=== PATIENT | female | born 1950 | race Caucasian/White ===

== ENCOUNTER 2016-10-12 08:35 | Day surgery (SDC) | payer MEDICARE, OTHER ==
[2016-10-12] MEDS ORDERED: Dilation Soln 1 EA EACH EYELF ONE (09:00)
[2016-10-12] MEDS ORDERED: Timolol Maleate 0.5% Ophth Soln 5 ML Bottle EYELF ONE (09:00)
[2016-10-12] MEDS ORDERED: Phenylephrine 10% Ophth Soln 5 ML Bot EYELF ONE (09:00)
[2016-10-12] MEDS ORDERED: Povidone-Iodine 5% Sterile Ophth Soln 30 ML Bottle EYELF ONE ×2 (09:00→10:16)
[2016-10-12] MEDS ORDERED: Sodium Chloride 0.9% 10 ML Syringe FLUSH PRN (09:00)
[2016-10-12] MEDS ORDERED: Proparacaine 0.5% Ophth Soln 15 ML Bottle EYELF ONE (09:00)
[2016-10-12] MEDS ORDERED: Moxifloxacin 0.5% Ophth Soln 3 ML Bottle EYELF ONE (09:00)
[2016-10-12] MEDS ORDERED: Midazolam 1 MG/ML 2 ML SDV ONE (09:42)
[2016-10-12] MEDS ORDERED: Dexamethasone 4 MG/ML SDV ONE (09:43)
[2016-10-12] MEDS ORDERED: Lidocaine 1% 30 ML SDV ONE (10:15)
[2016-10-12] MEDS ORDERED: Vancomycin 500 MG SDV EYELF ONE (10:15)
[2016-10-12] MEDS ORDERED: Chondroitin Sulfate/Hyaluronate Sodium Ophth Inj 0.75 ML Syringe EYELF ONE (10:16)
[2016-10-12] MEDS ORDERED: Balanced Salt Solution Ophth Irrig 500 ML Bottle IOCULAR ONE (10:16)
[2016-10-12] MEDS ORDERED: Apraclonidine 0.5% Ophth Soln 5 ML Bot EYELF ONE (10:16)
[2016-10-12] MEDS ORDERED: Diclofenac Sodium 0.1% Ophth Soln 5 ML Bottle EYELF ONE (10:16)
[2016-10-12] MEDS ORDERED: Dexamethasone/Neomycin/Polymyxin B Ophth Oint 3.5 GM Tube EYELF ONE (10:17)
[2016-10-12 11:15] VITALS: BP 134/85
[2016-10-12] MEDS ORDERED: Dexamethasone 4 MG/ML SDV IV ONE (14:07)
[2016-10-12] MEDS ORDERED: Midazolam 1 MG/ML 2 ML SDV IV ONE (14:07)
--- NOTE | 2016-10-12 14:29 | OR ---
DATE: 10/12/2016 PREOPERATIVE DIAGNOSIS: Cataract, left eye. POSTOPERATIVE DIAGNOSIS: Cataract, left eye. PROCEDURE: Extracapsular cataract extraction with intraocular lens implant, left eye. ANESTHESIA: Topical/local MAC. COMPLICATIONS: None. INDICATION: Ms. Jimenez was seen in the clinic. She has complained of a progressive change in vision. Clinical examination reveals visually significant cataract with best spectacle corrected vision with oncoming light at the level of 20/200. I explained options. I offered cataract surgery and I explained risks, including, but not limited to, infection, retinal detachment, loss of vision, need for additional surgery, and risks associated with anesthesia. We discussed implant options. She requested a monofocal implant. OPERATIVE DESCRIPTION: After informed consent was obtained and the risks, benefits, and alternatives were explained, the patient was brought to the operative suite and topical anesthesia was administered. The patient was then prepped and draped in the sterile fashion and attention was placed on the left eye. A sterile lid speculum was placed into the left eye to allow operative exposure. A full-thickness paracentesis was made in the temporal portion of the operative eye. Preservative-free lidocaine 0.1 mL was injected into the anterior chamber followed by viscoelastic. A full-thickness corneal incision was then made into the anterior chamber. A bent needle cystotome was used to create a small dave in the anterior capsule. The capsulorrhexis forceps was then used to create a 360-degree curvilinear capsulorrhexis. The nucleus was then removed using a phacoemulsification handpiece and the remaining cortical material was then removed with irrigation and aspiration handpiece. Following removal of the cortical material, the capsular bag was then inspected and noted to be free of any holes or tears. Viscoelastic was then injected into the capsular bag and the intraocular lens was inserted into the capsular bag. No complications occurred. The viscoelastic material was then removed from both the anterior and posterior chambers and from behind the IOL. The lens and capsular bag were then reinspected. The IOL was well centered and the capsular bag intact. The wound and paracentesis sites were inspected and hydrated with balanced saline solution. Both were found to be self-sealing. The intraocular pressure was assessed digitally and found to be within normal range. A good red reflex was noted at the completion of the procedure. No complications occurred during the operation. At the completion of the procedure, Maxitrol, Voltaren, and Iopidine drops were placed into the operative eye. A sterile eye shield was placed over the operative eye and the patient was transported to the postoperative recovery area having tolerated the procedure well. Postoperative instructions were given along with a postoperative appointment. The patient was advised to call with any questions or concerns. [facility] /[id number]
== END 2016-10-12 11:27 | disposition home or self-care (01) ==
LOC: DL.SDS 08:35
PROVIDERS: ATTEND Ophthalmology
DX: H26.9 Unspecified cataract (principal); I10 Essential (primary) hypertension; E78.5 Hyperlipidemia, unspecified; E03.9 Hypothyroidism, unspecified; Z98.890 Other specified postprocedural states; Z88.8 Allergy status to other drugs, medicaments and biological substances; Z90.49 Acquired absence of other specified parts of digestive tract; Z79.899 Other long term (current) drug therapy
CPT/HCPCS: 00142; 66984; A9270; C1780; J1100; J2250; J3370; J7050

== ENCOUNTER 2016-10-19 09:04 | Day surgery (SDC) | payer MEDICARE, OTHER ==
[2016-10-19] MEDS ORDERED: Moxifloxacin 0.5% Ophth Soln 3 ML Bottle EYERT ONE (09:15)
[2016-10-19] MEDS ORDERED: Phenylephrine 10% Ophth Soln 5 ML Bot EYERT ONE (09:15)
[2016-10-19] MEDS ORDERED: Timolol Maleate 0.5% Ophth Soln 5 ML Bottle EYERT ONE (09:15)
[2016-10-19] MEDS ORDERED: Proparacaine 0.5% Ophth Soln 15 ML Bottle EYERT ONE (09:15)
[2016-10-19] MEDS ORDERED: Sodium Chloride 0.9% 10 ML Syringe FLUSH PRN (09:15)
[2016-10-19] MEDS ORDERED: Povidone-Iodine 5% Sterile Ophth Soln 30 ML Bottle EYERT ONE ×2 (09:15→10:45)
[2016-10-19] MEDS ORDERED: Dilation Soln 1 EA EACH EYERT ONE (09:15)
[2016-10-19] MEDS ORDERED: Midazolam 1 MG/ML 2 ML SDV ONE (10:24)
[2016-10-19] MEDS ORDERED: Dexamethasone 4 MG/ML SDV ONE (10:24)
[2016-10-19] MEDS ORDERED: Dexamethasone/Neomycin/Polymyxin B Ophth Oint 3.5 GM Tube EYERT ONE (10:45)
[2016-10-19] MEDS ORDERED: Diclofenac Sodium 0.1% Ophth Soln 5 ML Bottle EYERT ONE (10:45)
[2016-10-19] MEDS ORDERED: Apraclonidine 0.5% Ophth Soln 5 ML Bot EYERT ONE (10:45)
[2016-10-19] MEDS ORDERED: Balanced Salt Solution Ophth Irrig 500 ML Bottle IOCULAR ONE (10:46)
[2016-10-19] MEDS ORDERED: Tetracaine HCl/PF 0.5% 4 ML Bottle EYERT ONE (10:46)
[2016-10-19] MEDS ORDERED: Chondroitin Sulfate/Hyaluronate Sodium Ophth Inj 0.75 ML Syringe EYERT ONE (10:46)
[2016-10-19] MEDS ORDERED: Vancomycin 500 MG SDV EYERT ONE (10:46)
[2016-10-19] MEDS ORDERED: Lidocaine 1% 30 ML SDV ONE (10:46)
--- NOTE | 2016-10-19 11:30 | OR ---
DATE: 10/19/2016 PREOPERATIVE DIAGNOSIS: Cataract, right eye. POSTOPERATIVE DIAGNOSIS: Cataract, right eye. PROCEDURE: Extracapsular cataract extraction with intraocular lens implant, right eye. ANESTHESIA: Topical/local MAC. COMPLICATIONS: None. INDICATION: Mrs. Jimenez was seen in the clinic. She has complained of a slow progressive decrease in vision. Clinical examination revealed visually significant cataract. I explained options, I offered cataract surgery, and I explained risks including but not limited to infection, retinal detachment, loss of vision, need for additional surgery, and risks associated with anesthesia. We discussed implant options. She requested a monofocal implant. She has preexisting corneal astigmatism and understands that her visual potential will be limited without glasses. OPERATIVE DESCRIPTION: After informed consent was obtained and the risks, benefits, and alternatives were explained, the patient was brought to the operative suite and topical anesthesia was administered. The patient was then prepped and draped in the sterile fashion and attention was placed on the right eye. A sterile lid speculum was placed into the right eye to allow operative exposure. A full-thickness paracentesis was made in the temporal portion of the operative eye. Preservative-free lidocaine 0.1 mL was injected into the anterior chamber followed by viscoelastic. A full-thickness corneal incision was then made into the anterior chamber. A bent needle cystotome was used to create a small dave in the anterior capsule. The capsulorrhexis forceps was then used to create a 360-degree curvilinear capsulorrhexis. The nucleus was then removed using a phacoemulsification handpiece and the remaining cortical material was then removed with irrigation and aspiration handpiece. Following removal of the cortical material, the capsular bag was then inspected and noted to be free of any holes or tears. Viscoelastic was then injected into the capsular bag and the intraocular lens was inserted into the capsular bag. The viscoelastic material was then removed from both the anterior and posterior chambers and from behind the IOL. The lens and capsular bag were then reinspected. The IOL was well centered and the capsular bag intact. The wound and paracentesis sites were inspected and hydrated with balanced saline solution. Both were found to be self-sealing. The intraocular pressure was assessed digitally and found to be within normal range. A good red reflex was noted at the completion of the procedure. No complications occurred during the operation. At the completion of the procedure, Maxitrol, Voltaren, and Iopidine drops were placed into the operative eye. A sterile eye shield was placed over the operative eye and the patient was transported to the postoperative recovery area having tolerated the procedure well. Postoperative instructions were given along with a postoperative appointment. The patient was advised to call with any questions or concerns. [facility] /[id number]
[2016-10-19 11:48] VITALS: BP 137/72
[2016-10-19] MEDS ORDERED: Midazolam 1 MG/ML 2 ML SDV IV ONE (15:59)
[2016-10-19] MEDS ORDERED: Dexamethasone 4 MG/ML SDV IV ONE (15:59)
== END 2016-10-19 11:45 | disposition home or self-care (01) ==
LOC: DL.SDS 09:04
PROVIDERS: ATTEND Ophthalmology
PROC: 08RJ3JZ Replacement of Right Lens with Synthetic Substitute, Percutaneous Approach (ICD-10-PCS; principal; 2016-10-19)
DX: H26.8 Other specified cataract (principal); I10 Essential (primary) hypertension; Z85.3 Personal history of malignant neoplasm of breast; E03.9 Hypothyroidism, unspecified; Z79.899 Other long term (current) drug therapy
CPT/HCPCS: 00142; 66984; A9270; J1100; J2250; J3370; J7050; V2632

== ENCOUNTER 2017-09-02 14:35 | Emergency (ER) | payer MEDICARE, OTHER ==
[2017-09-02] MEDS ORDERED: Sodium Chloride 0.9% 10 ML Syringe FLUSH PRN (14:39)
[2017-09-02] MEDS ORDERED: Nitroglycerin 0.4 MG Tab.SL SL PRN (14:40)
[2017-09-02] MEDS ORDERED: Aspirin 81 MG Tab.Chew PO ONE (14:40)
[2017-09-02 15:32] LABS: CHLORIDE,CL 101 mmol/L (101-111); SODIUM,NA 137 mmol/L (135-145)
[2017-09-02] MEDS ORDERED: Furosemide 40 MG Tab PO ONE (15:50)
[2017-09-02 16:38] VITALS: BP 122/70
--- NOTE | 2017-09-02 16:48 | EDM.PDOC ---
Scribed by Cielo Aldana 09/02/17 [id number] for Diony Nava MD ED HPI GENERAL MEDICAL PROBLEM - General Chief Complaint: Cardiovascular Problem Stated Complaint: hard time breathing Time Seen by Provider: 09/02/17 14:38 Source of Information: Reports: Patient, RN, RN Notes Reviewed History Limitations: Reports: No Limitations - History of Present Illness INITIAL COMMENTS - FREE TEXT/NARRATIVE: Patient presents to ER by private vehicle with complaint of shortness of breath and chest pressure. Patient is status post 3 vessel CABG in July 2017 at [facility] in [place]. Patient developed post surgical pleural effusion on the right and underwent thoracentesis on August 30 at [facility]. Over the past couple of days the patient has had progressive shortness of breath and orthopnea with intermittent chest pain/pressure. She states that she has been taking all of her medications as prescribed and has been taking her Lasix twice a day. She denies lower extremity edema, palpitations, fever, chills, cough or wheezing. Onset: Gradual Duration: Getting Worse Location: Reports: Chest Quality: Reports: Ache Severity: Moderate Improves with: Reports: None Worsens with: Reports: None Associated Symptoms: Reports: No Other Symptoms - Related Data Allergies Allergy/AdvReac Type Severity Reaction Status Date / Time codeine Allergy Itching Verified 10/19/16 09:50 Home Meds: Home Meds Acetaminophen 650 mg PO Q6HR PRN 12/10/13 [History] Calcium Carb & Citrate/Vit D3 [Calcium + Vitamin D3 Caplet] 1 tab PO DAILY 12/10 [History] Levothyroxine 125 mcg PO DAILY 12/10/13 [History] Metoprolol Succinate [Toprol XL 100mg] 50 mg PO DAILY 12/10/13 [History] Multivitamin [Multi Vitamin Daily] 1 tab PO DAILY 12/10/13 [History] Psyllium Husk [Metamucil] 1 cap PO DAILY 12/10/13 [History] amLODIPine [Norvasc] 5 mg PO BID 12/10/13 [History] Losartan/Hydrochlorothiazide [Hyzaar 100-12.5 Tablet] 1 tab PO DAILY 12/11/13 [ History] Aspirin [Ecotrin] 1 tab PO DAILY 10/11/16 [History] Propylene Glycol [Systane Balance] 1 drop EYEBOTH QID 07/18/17 [History] Past Medical History HEENT History: Reports: Cataract Cardiovascular History: Reports: High Cholesterol, Hypertension Respiratory History: Reports: None Gastrointestinal History: Reports: Diverticulosis Genitourinary History: Reports: None 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: Musculoskeletal History: Reports: Arthritis Neurological History: Reports: None Psychiatric History: Reports: None Endocrine/Metabolic History: Reports: Hypothyroidism Hematologic History: Reports: None Immunologic History: Reports: None Oncologic (Cancer) History: Reports: Breast Dermatologic History: Reports: None - Infectious Disease History Infectious Disease History: Reports: Chicken Pox, Measles, Mumps, Other (See Below) Other Infectious Disease History: streptococcal sepsis R) ankle - Past Surgical History Head Surgeries/Procedures: Reports: None HEENT Surgical History: Reports: Cataract Surgery, Eye Surgery Other HEENT Surgeries/Procedures: bilateral eye surg as an for crossed eyes. Cardiovascular Surgical History: Reports: None GI Surgical History: Reports: Appendectomy, Colonoscopy Female Surgical History: Reports: Hysterectomy, Mastectomy, Salpingo- Oophorectomy, Other (See Below) Other Female Surgeries/Procedures: bilateral mastectomy Social & Family History - Family History Cardiac: Reports: Angina, Heart Failure, Hypertension Musculoskeletal: Reports: Arthritis Endocrine/Metabolic: Reports: Diabetes, type II Oncologic: Reports: Breast, Lymphoma, Ovarian - Caffeine Use Caffeine Use: Reports: Coffee Other Caffeine Use: 2 cups of coffee daily ED ROS GENERAL - Review of Systems Review Of Systems: ROS reveals no pertinent complaints other than HPI. ED EXAM, GENERAL - Physical Exam Exam: See Below Exam Limited By: No Limitations General Appearance: Alert, WD/WN, No Apparent Distress, Obese Ears: Hearing Grossly Normal Nose: Normal Inspection, Normal Mucosa, No Blood Throat/Mouth: Normal Inspection, Normal Lips, Normal Teeth, Normal Gums, Normal Oropharynx, Normal Voice, No Airway Compromise Head: Atraumatic, Normocephalic Neck: Normal Inspection, Supple, Non-Tender, Full Range of Motion Respiratory/Chest: No Respiratory Distress, No Accessory Muscle Use, Decreased Breath Sounds (right greater than left), Rales (right greater than left), Other (midline sternal incision well healed without evidence of infection. ) Cardiovascular: Regular Rate, Rhythm, No Edema GI/Abdominal: Normal Bowel Sounds, Soft, Non-Tender, No Distention. No: Guarding, Rigid, Rebound (Female) Exam: Deferred Rectal (Female) Exam: Deferred Back Exam: Normal Inspection, Full Range of Motion, NT Extremities: Normal Inspection, Normal Range of Motion, Non-Tender, Normal Capillary Refill, No Pedal Edema Neurological: Alert, Oriented, CN II-XII Intact, Normal Cognition, No Motor/ Sensory Deficits Psychiatric: Normal Affect, Normal Mood Skin Exam: Warm, Dry, Intact, Normal Color, No Rash EKG INTERPRETATION EKG Date: 09/02/17 Time: 14:38 Rhythm: Other (sinus rhythm) Rate (Beats/Min): 69 [place]: Normal QRS: Other (incomplete. Probable left atrial abnormality. Borderline R wave progression, anterior leads.) ST-T: Other (nonspecific T abnormalities, lateral leads.) QT: Normal Course - Vital Signs Last Recorded V/S: Last Vital Signs Temp 36.7 C 09/02/17 14:55 Pulse 68 09/02/17 14:55 Resp 18 09/02/17 14:55 BP 122/70 09/02/17 14:55 Pulse Ox 95 09/02/17 14:55 - Orders/Labs/Meds Orders: Active Orders 24 hr Category Date Time Status EKG 12 Lead [EKG Documentation Completion] [RC] STAT Care 09/02/17 14:39 Active Peripheral IV Care [RC] . DIRECTED Care 09/02/17 14:39 Active Chest 1V Frontal [CR] Stat Exams 09/02/17 14:39 Taken Nitroglycerin [Nitrostat] Med 09/02/17 14:40 Active 0.4 mg SL Q5M PRN Sodium Chloride 0.9% [Saline Flush] Med 09/02/17 14:39 Active 10 ml FLUSH ASDIRECTED PRN Peripheral IV Insertion Adult [OM.PC] Stat Oth 09/02/17 14:39 Ordered Medication Orders Nitroglycerin (Nitrostat) 0.4 mg SL Q5M PRN PRN Reason: Chest Pain Sodium Chloride (Saline Flush) 10 ml FLUSH ASDIRECTED PRN PRN Reason: Keep Vein Open Last Admin: 09/02/17 16:33 Dose: 10 ml Labs: Laboratory Tests 09/02/17 09/02/17 09/02/17 Range/Units 14:55 14:55 14:55 WBC 9.2 (5.0-10.0) 10^3/uL RBC 3.46 L (4.2-5.4) 10^6/uL Hgb 11.0 L D (12.0-16.0) g/dL Hct 34.2 L (37.0-47.0) % MCV 98.8 (80-100) fL MCH 31.8 (27.0-34.0) pg MCHC 32.2 L (33.0-35.0) g/dL Plt Count 349 D (150-450) 10^3/uL Neut % (Auto) 56.2 (42.2-75.2) % Lymph % (Auto) 27.8 (20.5-50.1) % [place] % (Auto) 10.7 H (2-8) % Eos % (Auto) 5.0 H (1.0-3.0) % Baso % (Auto) 0.3 (0.0-1.0) % PT 10.0 (9.0-12.0) SEC INR 1.0 (0.9-1.2) APTT 25.4 (22.0-34.0) SEC Sodium 137 (135-145) mmol/L Potassium 4.4 (3.6-5.0) mmol/L Chloride 101 (101-111) mmol/L Carbon Dioxide 27.0 (21.0-31.0) mmol/L Anion Gap 13.4 BUN 12 (7-18) mg/dL Creatinine 1.0 (0.6-1.3) mg/dL Est Cr Clr Drug Dosing 47.78 mL/min Estimated GFR (MDRD) 55 BUN/Creatinine Ratio 12.00 Glucose 94 (74-105) mg/dL Calcium 9.2 (8.4-10.2) mg/dl Total Bilirubin 0.5 (0.2-1.0) mg/dL AST 16 (10-42) IU/L ALT 12 (10-60) IU/L Alkaline Phosphatase 69 (42-121) IU/L Creatine Kinase (26-174) IU/L Creatine Kinase Index (0-2.4) % CK-MB (CK-2) (0.4-4.7) ng/mL Troponin I < 0.02 (0.00-0.02) ng/ml B-Natriuretic Peptide 2890 H (0-100) pg/ml Total Protein 6.9 (6.7-8.2) g/dl Albumin 3.5 (3.2-5.5) g/dl Globulin 3.4 Albumin/Globulin Ratio 1.03 Amylase 48 (28-100) U/L Lipase 35 (22-51) U/L /12/12 Range/Units 14:55 WBC (5.0-10.0) 10^3/uL RBC (4.2-5.4) 10^6/uL Hgb (12.0-16.0) g/dL Hct (37.0-47.0) % MCV (80-100) fL MCH (27.0-34.0) pg MCHC (33.0-35.0) g/dL Plt Count (150-450) 10^3/uL Neut % (Auto) (42.2-75.2) % Lymph % (Auto) (20.5-50.1) % [place] % (Auto) (2-8) % Eos % (Auto) (1.0-3.0) % Baso % (Auto) (0.0-1.0) % PT (9.0-12.0) SEC INR (0.9-1.2) APTT (22.0-34.0) SEC Sodium (135-145) mmol/L Potassium (3.6-5.0) mmol/L Chloride (101-111) mmol/L Carbon Dioxide (21.0-31.0) mmol/L Anion Gap BUN (7-18) mg/dL Creatinine (0.6-1.3) mg/dL Est Cr Clr Drug Dosing mL/min Estimated GFR (MDRD) BUN/Creatinine Ratio Glucose (74-105) mg/dL Calcium (8.4-10.2) mg/dl Total Bilirubin (0.2-1.0) mg/dL AST (10-42) IU/L ALT (10-60) IU/L Alkaline Phosphatase (42-121) IU/L Creatine Kinase 31 (26-174) IU/L Creatine Kinase Index 2.6 H (0-2.4) % CK-MB (CK-2) 0.80 (0.4-4.7) ng/mL Troponin I (0.00-0.02) ng/ml B-Natriuretic Peptide (0-100) pg/ml Total Protein (6.7-8.2) g/dl Albumin (3.2-5.5) g/dl Globulin Albumin/Globulin Ratio Amylase (28-100) U/L Lipase (22-51) U/L Meds: Medications Generic Name Dose Route Start Last Admin Trade Name Molina PRN Reason Stop Dose Admin Nitroglycerin 0.4 mg 09/02/17 14:40 Nitrostat SL Q5M PRN Chest Pain Sodium Chloride 10 ml 09/02/17 14:39 09/02/17 16:33 Saline Flush FLUSH 10 ml ASDIRECTED PRN Administration Keep Vein Open Discontinued Medications Generic Name Dose Route Start Last Admin Trade Name Freq PRN Reason Stop Dose Admin Aspirin 324 mg 09/02/17 14:40 09/02/17 14:51 Aspirin PO 09/02/17 14:41 324 mg ONETIME ONE Administration Furosemide 40 mg 09/02/17 15:50 09/02/17 16:25 Lasix PO 09/02/17 15:51 40 mg ONETIME ONE Administration - Radiology Interpretation Free Text/Narrative:: Chest x-ray: Small left pleural effusion with likely associated basilar atelectasis. See rad report. Departure - Departure Time of Disposition: 16:20 Disposition: DC/Tfer to Acute Hospital 02 Reason for Transfer *Q: Primary PCI Indicated Condition: Serious Clinical Impression: Shortness of breath CHF (congestive heart failure) Qualifiers: Heart failure type: unspecified Heart failure chronicity: acute Qualified Code( s): I50.9 - Heart failure, unspecified Chest pain Qualifiers: Chest pain type: unspecified Qualified Code(s): R07.9 - Chest pain, unspecified Forms: ED Department Discharge, Interfacility Transfer EMTALA - My Orders Last 24 Hours: My Active Orders 09/02/17 14:39 EKG 12 Lead [EKG Documentation Completion] [RC] STAT Peripheral IV Care [RC] . DIRECTED Chest 1V Frontal [CR] Stat Sodium Chloride 0.9% [Saline Flush] 10 ml FLUSH ASDIRECTED PRN Peripheral IV Insertion Adult [OM.PC] Stat 09/02/17 14:40 Nitroglycerin [Nitrostat] 0.4 mg SL Q5M PRN - Assessment/Plan Last 24 Hours: My Active Orders 09/02/17 14:39 EKG 12 Lead [EKG Documentation Completion] [RC] STAT Peripheral IV Care [RC] . DIRECTED Chest 1V Frontal [CR] Stat Sodium Chloride 0.9% [Saline Flush] 10 ml FLUSH ASDIRECTED PRN Peripheral IV Insertion Adult [OM.PC] Stat 09/02/17 14:40 Nitroglycerin [Nitrostat] 0.4 mg SL Q5M PRN I have read and agree with the documentation that has been completed regarding this visit. By signing this record, I attest that the documentation was completed in my physical presence and is an accurate record of the encounter.
--- NOTE | 2017-09-06 13:04 | EKG ---
09/02/2017 - CLINTON CHANDLER E - TIME: 2:38 p.m. FINDINGS: Sinus rhythm at 69 and complete right bundle branch block. [facility] /[id number]
== END 2017-09-02 17:13 ==
LOC: DL.ED 14:35
DX: I11.0 Hypertensive heart disease with heart failure (principal); I50.9 Heart failure, unspecified; E78.00 Pure hypercholesterolemia, unspecified; E03.9 Hypothyroidism, unspecified; Z88.5 Allergy status to narcotic agent; Z79.899 Other long term (current) drug therapy; Z79.82 Long term (current) use of aspirin
CPT/HCPCS: 36415; 71045; 80053; 82150; 82550; 82553; 83690; 83880; 84484; 85025; 85610; 85730; 93005; 93010; 99285; A9270; J7050

== ENCOUNTER 2017-09-10 15:30 | Observation (INO) | payer MEDICARE, OTHER ==
[2017-09-10 16:42] LABS: CHLORIDE,CL 103 mmol/L (101-111); SODIUM,NA 139 mmol/L (135-145)
--- NOTE | 2017-09-10 17:08 | EDM.PDOC ---
ED HPI GENERAL MEDICAL PROBLEM - General Chief Complaint: Respiratory Problem Stated Complaint: [id number] CANT BREATHE WELL RECENT SURGERY Time Seen by Provider: 09/10/17 15:55 Source of Information: Reports: Patient History Limitations: Reports: No Limitations - History of Present Illness INITIAL COMMENTS - FREE TEXT/NARRATIVE: ED with c/o feeling shortof breath, no chest pain, weight gain increase 3# today since am weight. Recent CABG in July, Tx from ED here 08/31 with CHF. Patient states additional dose of Lasix today and still not voiding very well. Bilateral Chest Pain Score (Numeric/FACES): 5 - Related Data Allergies Allergy/AdvReac Type Severity Reaction Status Date / Time codeine Allergy Itching Verified 09/10/17 17:03 Home Meds: Home Meds Calcium Carb & Citrate/Vit D3 [Calcium + Vitamin D3 Caplet] 1 tab PO BID [History] Levothyroxine 125 mcg PO DAILY 12/10/13 [History] Multivitamin [Multi-Vitamin Daily] 1 tab PO DAILY 12/10/13 [History] Aspirin [Ecotrin] 1 tab PO DAILY 10/11/16 [History] Propylene Glycol [Systane Balance] 1 drop EYEBOTH QID PRN 10/11/16 [History] Acetaminophen [Tylenol Extra Strength] 1 tab PO Q4H PRN 09/02/17 [History] Amiodarone HCl [Pacerone] 1 tab PO DAILY 09/02/17 [History] Aspirin [Halfprin] 1 tab PO DAILY 09/02/17 [History] Docusate Sodium 2 cap PO BEDTIME 09/02/17 [History] Metoprolol Tartrate [Lopressor] 25 mg PO BID 09/02/17 [History] Nitroglycerin [Nitrostat] 1 tab SL ASDIRECTED PRN 09/02/17 [History] Potassium Chloride 1 tab PO BID 09/02/17 [History] Psyllium Husk 1 tsp PO DAILY 09/02/17 [History] atorvaSTATin [Lipitor] 40 mg PO BEDTIME 09/02/17 [History] Warfarin [Coumadin] 5 mg PO DAILY 09/10/17 [History] Furosemide [Lasix] 1 tab PO BID #60 tablet 09/11/17 [Rx] Warfarin [Coumadin] 5 mg PO DAILY@1400 tablet 09/11/17 [Rx] Zolpidem [Ambien] 5 mg PO BEDTIME PRN tablet 09/11/17 [Rx] Past Medical History HEENT History: Reports: Cataract Cardiovascular History: Reports: Afib, High Cholesterol, Hypertension Respiratory History: Reports: None Gastrointestinal History: Reports: Diverticulosis Genitourinary History: Reports: None 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: Musculoskeletal History: Reports: Arthritis Neurological History: Reports: None Psychiatric History: Reports: None Endocrine/Metabolic History: Reports: Hypothyroidism Hematologic History: Reports: None Immunologic History: Reports: None Oncologic (Cancer) History: Reports: Breast Dermatologic History: Reports: None - Infectious Disease History Infectious Disease History: Reports: Chicken Pox, Measles, Mumps, Other (See Below) Other Infectious Disease History: streptococcal sepsis R) ankle - Past Surgical History Head Surgeries/Procedures: Reports: None HEENT Surgical History: Reports: Cataract Surgery, Eye Surgery Other HEENT Surgeries/Procedures: 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 Cardiovascular Surgical History: Reports: None, Coronary Artery Bypass GI Surgical History: Reports: Appendectomy, Colonoscopy Female Surgical History: Reports: Hysterectomy, Mastectomy, Salpingo- Oophorectomy, Other (See Below) Other Female Surgeries/Procedures: bilateral mastectomy Social & Family History - Family History Cardiac: Reports: Angina, Heart Failure, Hypertension Musculoskeletal: Reports: Arthritis Endocrine/Metabolic: Reports: Diabetes, type II Oncologic: Reports: Breast, Lymphoma, Ovarian - Tobacco Use Smoking Status *Q: Never Smoker Second Hand Smoke Exposure: No - Caffeine Use Caffeine Use: Reports: Coffee Other Caffeine Use: 2 cups of coffee daily - Recreational Drug Use Recreational Drug Use: No ED ROS GENERAL - Review of Systems Review Of Systems: See Below Constitutional: Reports: Fatigue, Weight Gain HEENT: Reports: No Symptoms Respiratory: Reports: Shortness of Breath Cardiovascular: Reports: Dyspnea on Exertion, Edema. Denies: Chest Pain GI/Abdominal: Reports: No Symptoms Musculoskeletal: Reports: Leg Pain (bilateral lowe with swelling) Neurological: Reports: No Symptoms ED EXAM, GENERAL - Physical Exam Exam: See Below Exam Limited By: No Limitations General Appearance: Alert, Anxious Eye Exam: Bilateral Eye: EOMI Ears: Normal External Exam Ear Exam: Bilateral Ear: TM normal Nose: Normal Inspection Throat/Mouth: Normal Inspection Head: Atraumatic, Normocephalic Neck: Normal Inspection Respiratory/Chest: Decreased Breath Sounds (left base wheeze) Cardiovascular: Normal Peripheral Pulses, Regular Rate, Rhythm GI/Abdominal: Normal Bowel Sounds Back Exam: Normal Inspection, Full Range of Motion Extremities: Pedal Edema (trace) Neurological: Alert, Oriented, Normal Cognition Skin Exam: Wound/Incision (left medial calf, chest incision healining no redness) Course - Vital Signs Last Recorded V/S: Last Vital Signs Temp 97.8 F 09/11/17 08:00 Pulse 92 09/11/17 08:39 Resp 18 09/11/17 08:00 BP 117/86 09/11/17 08:39 Pulse Ox 94 L 09/11/17 08:00 - Orders/Labs/Meds Labs: Laboratory Tests 09/10/17 09/10/17 09/10/17 Range/Units 16:08 16:08 16:08 WBC 8.0 (5.0-10.0) 10^3/uL RBC 3.50 L (4.2-5.4) 10^6/uL Hgb 10.9 L (12.0-16.0) g/dL Hct 34.4 L (37.0-47.0) % MCV 98.3 (80-100) fL MCH 31.1 (27.0-34.0) pg MCHC 31.7 L (33.0-35.0) g/dL Plt Count 242 D (150-450) 10^3/uL Neut % (Auto) 50.2 (42.2-75.2) % Lymph % (Auto) 34.0 (20.5-50.1) % Towns % (Auto) 9.4 H (2-8) % Eos % (Auto) 6.0 H (1.0-3.0) % Baso % (Auto) 0.4 (0.0-1.0) % PT 20.7 H D (9.0-12.0) SEC INR 2.1 H (0.9-1.2) Sodium 139 (135-145) mmol/L Potassium 4.0 (3.6-5.0) mmol/L Chloride 103 (101-111) mmol/L Carbon Dioxide 28.0 (21.0-31.0) mmol/L Anion Gap 12.0 BUN 12 (7-18) mg/dL Creatinine 0.9 (0.6-1.3) mg/dL Est Cr Clr Drug Dosing 53.09 mL/min Estimated GFR (MDRD) > 60 BUN/Creatinine Ratio 13.33 Glucose 98 (74-105) mg/dL Calcium 9.1 (8.4-10.2) mg/dl Total Bilirubin 0.7 (0.2-1.0) mg/dL AST 22 (10-42) IU/L ALT 14 (10-60) IU/L Alkaline Phosphatase 77 (42-121) IU/L Creatine Kinase (26-174) IU/L Creatine Kinase Index (0-2.4) % CK-MB (CK-2) (0.4-4.7) ng/mL Troponin I < 0.02 (0.00-0.02) ng/ml B-Natriuretic Peptide 148 H (0-100) pg/ml Total Protein 6.7 (6.7-8.2) g/dl Albumin 3.5 (3.2-5.5) g/dl Globulin 3.2 Albumin/Globulin Ratio 1.09 Urine Color (YELLOW) Urine Appearance (CLEAR) Urine pH (5.0-9.0) Ur Specific [place] (1.005-1.030) Urine Protein (NEGATIVE) Urine Glucose (UA) (NEGATIVE) Urine Ketones (NEGATIVE) Urine Occult Blood (NEGATIVE) Urine Nitrite (NEGATIVE) Urine Bilirubin (NEGATIVE) Urine Urobilinogen (0.2-1.0) mg/dL Ur Leukocyte Esterase (NEGATIVE) Urine RBC /HPF Urine WBC (0-5/HPF) /HPF Ur Epithelial Cells /HPF Urine Bacteria (0-FEW/HPF) /HPF 09/10/17 09/10/17 Range/Units 16:08 16:57 WBC (5.0-10.0) 10^3/uL RBC (4.2-5.4) 10^6/uL Hgb (12.0-16.0) g/dL Hct (37.0-47.0) % MCV (80-100) fL MCH (27.0-34.0) pg MCHC (33.0-35.0) g/dL Plt Count (150-450) 10^3/uL Neut % (Auto) (42.2-75.2) % Lymph % (Auto) (20.5-50.1) % Towns % (Auto) (2-8) % Eos % (Auto) (1.0-3.0) % Baso % (Auto) (0.0-1.0) % PT (9.0-12.0) SEC INR (0.9-1.2) Sodium (135-145) mmol/L Potassium (3.6-5.0) mmol/L Chloride (101-111) mmol/L Carbon Dioxide (21.0-31.0) mmol/L Anion Gap BUN (7-18) mg/dL Creatinine (0.6-1.3) mg/dL Est Cr Clr Drug Dosing mL/min Estimated GFR (MDRD) BUN/Creatinine Ratio Glucose (74-105) mg/dL Calcium (8.4-10.2) mg/dl Total Bilirubin (0.2-1.0) mg/dL AST (10-42) IU/L ALT (10-60) IU/L Alkaline Phosphatase (42-121) IU/L Creatine Kinase 30 (26-174) IU/L Creatine Kinase Index 3.0 H (0-2.4) % CK-MB (CK-2) 0.90 (0.4-4.7) ng/mL Troponin I (0.00-0.02) ng/ml B-Natriuretic Peptide (0-100) pg/ml Total Protein (6.7-8.2) g/dl Albumin (3.2-5.5) g/dl Globulin Albumin/Globulin Ratio Urine Color Light yellow (YELLOW) Urine Appearance Clear (CLEAR) Urine pH 7.0 (5.0-9.0) Ur Specific [place] 1.010 (1.005-1.030) Urine Protein Negative (NEGATIVE) Urine Glucose (UA) Negative (NEGATIVE) Urine Ketones Negative (NEGATIVE) Urine Occult Blood Negative (NEGATIVE) Urine Nitrite Negative (NEGATIVE) Urine Bilirubin Negative (NEGATIVE) Urine Urobilinogen 0.2 (0.2-1.0) mg/dL Ur Leukocyte Esterase Negative (NEGATIVE) Urine RBC 0-5 /HPF Urine WBC 0-5 (0-5/HPF) /HPF Ur Epithelial Cells Rare /HPF Urine Bacteria Rare (0-FEW/HPF) /HPF Meds: Medications Discontinued Medications Generic Name Dose Route Start Last Admin Trade Name Freq PRN Reason Stop Dose Admin Acetaminophen 500 mg 09/10/17 18:26 09/11/17 01:25 Tylenol Extra Strength PO 500 mg Q4H PRN Administration Pain Amiodarone HCl 200 mg 09/11/17 09:00 09/11/17 08:39 Cordarone PO 200 mg DAILY JANESSA Administration Aspirin 81 mg 09/11/17 09:00 09/11/17 08:39 Halfprin PO 81 mg DAILY JANESSA Administration Atorvastatin Calcium 40 mg 09/10/17 21:00 09/10/17 21:02 Lipitor PO 40 mg BEDTIME JANESSA Administration Docusate Sodium 200 mg 09/10/17 21:00 09/10/17 21:02 Colace PO 200 mg BEDTIME JANESSA Administration Furosemide 20 mg 09/11/17 08:00 Lasix PO BIDDIURETIC JANESSA Furosemide 20 mg 09/10/17 21:00 09/11/17 08:39 Lasix PO 20 mg TID JANESSA Administration Heparin Sodium (Porcine) 5,000 units 09/10/17 22:00 Heparin Sodium SUBCUT Q8HR JANESSA Levothyroxine Sodium 125 mcg 09/11/17 06:00 09/11/17 05:57 Levothyroxine PO 125 mcg ACBRK JANESSA Administration Metoprolol Tartrate 25 mg 09/10/17 21:00 09/11/17 08:39 Lopressor PO 25 mg BID JANESSA Administration Multivitamins 1 each 09/11/17 09:00 09/11/17 08:39 Thera PO 1 each DAILY JANESSA Administration Potassium Chloride 10 meq 09/10/17 21:00 09/11/17 08:39 Klor-Con 10 PO 10 meq BID JANESSA Administration Sodium Chloride 10 ml 09/10/17 18:27 09/11/17 08:45 Saline Flush FLUSH 10 ml ASDIRECTED PRN Administration Keep Vein Open Warfarin Sodium 5 mg 09/10/17 19:00 09/10/17 19:09 Coumadin PO 5 mg DAILY@1400 JANESSA Administration Zolpidem Tartrate 5 mg 09/10/17 18:27 Ambien PO BEDTIME PRN Sleep Departure - Departure Time of Disposition: 18:00 Disposition: Admitted As Inpatient 64 Condition: Good Clinical Impression: CHF (congestive heart failure) Qualifiers: Heart failure type: diastolic Heart failure chronicity: acute Qualified Code(s) : I50.31 - Acute diastolic (congestive) heart failure - Discharge Information
[2017-09-10] MEDS ORDERED: Acetaminophen 500 MG Tab PO PRN (18:26)
[2017-09-10] MEDS ORDERED: Sodium Chloride 0.9% 10 ML Syringe FLUSH PRN (18:27)
[2017-09-10] MEDS ORDERED: Zolpidem 5 MG Tab PO PRN (18:27)
--- NOTE | 2017-09-10 18:46 | PCM.HP ---
H&P History of Present Illness - General Date of Service: 09/10/17 Admit Problem/Dx: Admission Diagnosis/Problem Admission Diagnosis/Problem Shortness of breath Source of Information: Patient - History of Present Illness Initial Comments - Free Text/Narative: The patient is a 67-year-old lady with a history of coronary artery disease, atrial fibrillation, diastolic congestive heart failure. The patient recently had bypass surgery, pacemaker placement. The patient has a known left sided pleural effusion. For this the patient underwent thoracentesis about 2 weeks ago. The patient presented with the shortness of breath, chest tightness. This started on the night of 09 September. No associated chest pain unless coughing. The cough has been present since the bypass surgery. There is no associated fever, no sputum. No significant leg swelling or change in swelling. She has been checking her weight once or twice a day. Today she noted that her weight in the afternoon was 3 pounds more than in the morning. Bilateral Chest Pain Score (Numeric/FACES): 5 - Related Data Allergies/Adverse Reactions: Allergies Allergy/AdvReac Type Severity Reaction Status Date / Time codeine Allergy Itching Verified 09/10/17 17:03 Home Medications: Home Meds Calcium Carb & Citrate/Vit D3 [Calcium + Vitamin D3 Caplet] 1 tab PO BID [History] Levothyroxine 125 mcg PO DAILY 12/10/13 [History] Multivitamin [Multi Vitamin Daily] 1 tab PO DAILY 12/10/13 [History] Aspirin [Ecotrin] 1 tab PO DAILY 10/11/16 [History] Propylene Glycol [Systane Balance] 1 drop EYEBOTH QID PRN 10/11/16 [History] Acetaminophen [Tylenol Extra Strength] 1 tab PO Q4H PRN 09/02/17 [History] Amiodarone HCl [Pacerone] 1 tab PO DAILY 09/02/17 [History] Aspirin [Halfprin] 1 tab PO DAILY 09/02/17 [History] Docusate Sodium 2 cap PO BEDTIME 09/02/17 [History] Furosemide [Lasix] 1 tab PO BID 09/02/17 [History] Metoprolol Tartrate [Lopressor] 25 mg PO BID 09/02/17 [History] Nitroglycerin [Nitrostat] 1 tab SL ASDIRECTED PRN 09/02/17 [History] Potassium Chloride 1 tab PO BID 09/02/17 [History] Psyllium Husk 1 tsp PO DAILY 09/02/17 [History] atorvaSTATin [Lipitor] 40 mg PO BEDTIME 09/02/17 [History] Warfarin [Coumadin] 5 mg PO DAILY 09/10/17 [History] Past Medical History HEENT History: Reports: Cataract Cardiovascular History: Reports: Afib, Bypass, High Cholesterol, Hypertension, Pacemaker Respiratory History: Reports: None Gastrointestinal History: Reports: Diverticulosis Genitourinary History: Reports: None 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: Musculoskeletal History: Reports: Arthritis Neurological History: Reports: None Psychiatric History: Reports: None Endocrine/Metabolic History: Reports: Hypothyroidism Hematologic History: Reports: None Immunologic History: Reports: None Oncologic (Cancer) History: Reports: Breast Dermatologic History: Reports: None Other Dermatologic History: slight rash to back of legs - Infectious Disease History Infectious Disease History: Reports: Chicken Pox, Measles, Mumps, Pertussis ( Whooping Cough) Other Infectious Disease History: streptococcal sepsis R) ankle - Past Surgical History Head Surgeries/Procedures: Reports: None HEENT Surgical History: Reports: Cataract Surgery, Eye Surgery Other HEENT Surgeries/Procedures: bilateral eye surg as an for crossed eyes. Cardiovascular Surgical History: Reports: None, Coronary Artery Bypass GI Surgical History: Reports: Appendectomy, Colonoscopy, EGD Female Surgical History: Reports: Hysterectomy, Mastectomy, Salpingo- Oophorectomy, Other (See Below) Other Female Surgeries/Procedures: bilateral mastectomy Neurological Surgical History: Reports: None Social & Family History - Family History Family Medical History: Noncontributory Cardiac: Reports: Angina, Heart Failure, Hypertension Musculoskeletal: Reports: Arthritis Endocrine/Metabolic: Reports: Diabetes, type II Oncologic: Reports: Breast, Lymphoma, Ovarian - Tobacco Use Smoking Status *Q: Former Smoker Years of Tobacco use: 20 Packs/Tins Daily: 1 Used Tobacco, but Quit: Yes Month/Year Tobacco Last Used: August 1997 Second Hand Smoke Exposure: Yes - Caffeine Use Caffeine Use: Reports: Coffee Other Caffeine Use: 2 cups of coffee daily - Recreational Drug Use Recreational Drug Use: No H&P Review of Systems - Review of Systems: Review Of Systems: See Below General: Denies: Fever Pulmonary: Reports: Shortness of Breath, Wheezing (She heard herself wheezing last night), Cough. Denies: Sputum Cardiovascular: Reports: Edema (Trace). Denies: Chest Pain, Palpitations Gastrointestinal: Denies: Abdominal Pain Genitourinary: Denies: Dysuria Psychiatric: Denies: Confusion Neurological: Denies: Dizziness, Headache, Syncope Exam - Exam Exam: See Below - Vital Signs Vital Signs: Last Vital Signs Temp 36.6 C 09/10/17 15:52 Pulse 72 09/10/17 15:52 Resp 18 09/10/17 15:52 BP 129/80 09/10/17 15:52 Pulse Ox 97 09/10/17 15:52 Weight: 103.873 kg - Exam Quality Assessment: No: Supplemental Oxygen General: Alert, Oriented HEENT: EOMI Neck: Supple Lungs: Normal Respiratory Effort, Decreased Breath Sounds (Left side). No: Rhonchi, Wheezing Cardiovascular: Regular Rate, Regular Rhythm GI/Abdominal Exam: Normal Bowel Sounds, Soft, Non-Tender Extremities: Pedal Edema (Trace bilateral) Neuro Extensive - Mental Status: Alert, Oriented x3, Normal Mood/Affect Psychiatric: Alert, Normal Affect, Normal Mood - Patient Data Lab Results Last 24 hrs: Laboratory Results - last 24 hr 09/10/17 09/10/17 09/10/17 Range/Units 16:08 16:08 16:08 WBC 8.0 (5.0-10.0) 10^3/uL RBC 3.50 L (4.2-5.4) 10^6/uL Hgb 10.9 L (12.0-16.0) g/dL Hct 34.4 L (37.0-47.0) % MCV 98.3 (80-100) fL MCH 31.1 (27.0-34.0) pg MCHC 31.7 L (33.0-35.0) g/dL Plt Count 242 D (150-450) 10^3/uL Neut % (Auto) 50.2 (42.2-75.2) % Lymph % (Auto) 34.0 (20.5-50.1) % [place] % (Auto) 9.4 H (2-8) % Eos % (Auto) 6.0 H (1.0-3.0) % Baso % (Auto) 0.4 (0.0-1.0) % PT 20.7 H D (9.0-12.0) SEC INR 2.1 H (0.9-1.2) Sodium 139 (135-145) mmol/L Potassium 4.0 (3.6-5.0) mmol/L Chloride 103 (101-111) mmol/L Carbon Dioxide 28.0 (21.0-31.0) mmol/L Anion Gap 12.0 BUN 12 (7-18) mg/dL Creatinine 0.9 (0.6-1.3) mg/dL Est Cr Clr Drug Dosing 53.09 mL/min Estimated GFR (MDRD) > 60 BUN/Creatinine Ratio 13.33 Glucose 98 (74-105) mg/dL Calcium 9.1 (8.4-10.2) mg/dl Total Bilirubin 0.7 (0.2-1.0) mg/dL AST 22 (10-42) IU/L ALT 14 (10-60) IU/L Alkaline Phosphatase 77 (42-121) IU/L Creatine Kinase (26-174) IU/L Creatine Kinase Index (0-2.4) % CK-MB (CK-2) (0.4-4.7) ng/mL Troponin I < 0.02 (0.00-0.02) ng/ml B-Natriuretic Peptide 148 H (0-100) pg/ml Total Protein 6.7 (6.7-8.2) g/dl Albumin 3.5 (3.2-5.5) g/dl Globulin 3.2 Albumin/Globulin Ratio 1.09 Urine Color (YELLOW) Urine Appearance (CLEAR) Urine pH (5.0-9.0) Ur Specific [place] (1.005-1.030) Urine Protein (NEGATIVE) Urine Glucose (UA) (NEGATIVE) Urine Ketones (NEGATIVE) Urine Occult Blood (NEGATIVE) Urine Nitrite (NEGATIVE) Urine Bilirubin (NEGATIVE) Urine Urobilinogen (0.2-1.0) mg/dL Ur Leukocyte Esterase (NEGATIVE) Urine RBC /HPF Urine WBC (0-5/HPF) /HPF Ur Epithelial Cells /HPF Urine Bacteria (0-FEW/HPF) /HPF 18 09/10/17 Range/Units 16:08 16:57 WBC (5.0-10.0) 10^3/uL RBC (4.2-5.4) 10^6/uL Hgb (12.0-16.0) g/dL Hct (37.0-47.0) % MCV (80-100) fL MCH (27.0-34.0) pg MCHC (33.0-35.0) g/dL Plt Count (150-450) 10^3/uL Neut % (Auto) (42.2-75.2) % Lymph % (Auto) (20.5-50.1) % [place] % (Auto) (2-8) % Eos % (Auto) (1.0-3.0) % Baso % (Auto) (0.0-1.0) % PT (9.0-12.0) SEC INR (0.9-1.2) Sodium (135-145) mmol/L Potassium (3.6-5.0) mmol/L Chloride (101-111) mmol/L Carbon Dioxide (21.0-31.0) mmol/L Anion Gap BUN (7-18) mg/dL Creatinine (0.6-1.3) mg/dL Est Cr Clr Drug Dosing mL/min Estimated GFR (MDRD) BUN/Creatinine Ratio Glucose (74-105) mg/dL Calcium (8.4-10.2) mg/dl Total Bilirubin (0.2-1.0) mg/dL AST (10-42) IU/L ALT (10-60) IU/L Alkaline Phosphatase (42-121) IU/L Creatine Kinase 30 (26-174) IU/L Creatine Kinase Index 3.0 H (0-2.4) % CK-MB (CK-2) 0.90 (0.4-4.7) ng/mL Troponin I (0.00-0.02) ng/ml B-Natriuretic Peptide (0-100) pg/ml Total Protein (6.7-8.2) g/dl Albumin (3.2-5.5) g/dl Globulin Albumin/Globulin Ratio Urine Color Light yellow (YELLOW) Urine Appearance Clear (CLEAR) Urine pH 7.0 (5.0-9.0) Ur Specific [place] 1.010 (1.005-1.030) Urine Protein Negative (NEGATIVE) Urine Glucose (UA) Negative (NEGATIVE) Urine Ketones Negative (NEGATIVE) Urine Occult Blood Negative (NEGATIVE) Urine Nitrite Negative (NEGATIVE) Urine Bilirubin Negative (NEGATIVE) Urine Urobilinogen 0.2 (0.2-1.0) mg/dL Ur Leukocyte Esterase Negative (NEGATIVE) Urine RBC 0-5 /HPF Urine WBC 0-5 (0-5/HPF) /HPF Ur Epithelial Cells Rare /HPF Urine Bacteria Rare (0-FEW/HPF) /HPF Result Diagrams: 09/10/17 16:08 09/10/17 16:08 Imaging Impressions Last 24 hrs: Chest x-ray per my reading shows left-sided pleural effusion. - Problem List (1) CHF (congestive heart failure) SNOMED Code(s): 51926514 ICD Code: I50.9 - HEART FAILURE, UNSPECIFIED Status: Acute Current Visit : No Qualifiers: Heart failure type: unspecified Heart failure chronicity: acute Qualified Code(s): I50.9 - Heart failure, unspecified (2) Shortness of breath SNOMED Code(s): 250720768 ICD Code: R06.02 - SHORTNESS OF BREATH Status: Acute Current Visit: No Problem List Initiated/Reviewed/Updated: Yes Orders Last 24hrs: Active Orders 24 hr Category Date Time Status Patient Status [ADT] Routine ADT 09/10/17 18:27 Ordered EKG Documentation Completion [RC] URGENT Care 09/10/17 15:54 Active Oxygen Therapy [RC] PRN Care 09/10/17 18:27 Ordered Peripheral IV Care [RC] . DIRECTED Care 09/10/17 18:29 Ordered Telemetry Monitoring [Cardiac Monitoring] [RC] . Care 09/10/17 18:25 Ordered DIRECTED Up With Assistance [RC] ASDIRECTED Care 09/10/17 18:27 Ordered VTE/DVT Education [RC] PER UNIT ROUTINE Care 09/10/17 18:27 Ordered Vital Signs [RC] Q4H Care 09/10/17 18:27 Ordered 2 Gram Sodium Diet [DIET] Diet 09/10/17 Breakfast Ordered BASIC METABOLIC PANEL,BMP [CHEM] AM Lab 09/11/17 05:15 Ordered TROPONIN I [CHEM] Routine Lab 09/10/17 23:00 Ordered Acetaminophen [Tylenol Extra Strength] Med 09/10/17 18:26 Ordered 1 tab PO Q4H PRN Amiodarone [Cordarone] Med 09/11/17 09:00 Ordered 1 tab PO DAILY Aspirin [Halfprin] Med 09/11/17 09:00 Ordered 1 tab PO DAILY Docusate Sodium [Colace] Med 09/10/17 21:00 Ordered 2 cap PO BEDTIME Furosemide [Lasix] Med 09/10/17 21:00 Ordered 20 mg PO TID Furosemide [Lasix] Med 09/10/17 21:00 Stop Req DOSE mg PO BID Heparin Sodium Med 09/10/17 22:00 Ordered 5,000 units SUBCUT Q8HR Levothyroxine Med 09/11/17 09:00 Ordered 125 mcg PO DAILY Metoprolol Tartrate [Lopressor] Med 09/10/17 21:00 Ordered 25 mg PO BID Multivitamin [Multi-Vitamin Daily] Med 09/11/17 09:00 Ordered 1 tab PO DAILY Potassium Chloride [Potassium Chloride] Med 09/10/17 21:00 Ordered 1 tab PO BID Sodium Chloride 0.9% [Saline Flush] Med 09/10/17 18:27 Ordered 10 ml FLUSH ASDIRECTED PRN Warfarin [Coumadin] Med 09/10/17 19:00 Ordered 5 mg PO DAILY@1400 Zolpidem [Ambien] Med 09/10/17 18:27 Ordered 5 mg PO BEDTIME PRN atorvaSTATin [Lipitor] Med 09/10/17 21:00 Ordered 40 mg PO BEDTIME Antiembolic Hose [OM.PC] Per Unit Routine Oth 09/10/17 18:29 Ordered Peripheral IV Insertion Adult [OM.PC] Routine Oth 09/10/17 18:27 Ordered Saline Lock Insert [OM.PC] Routine Oth 09/10/17 18:27 Ordered Resuscitation Status Routine Resus Stat 09/10/17 18:27 Ordered Medication Orders Acetaminophen (Tylenol Extra Strength) 500 mg PO Q4H PRN PRN Reason: Pain Amiodarone HCl (Cordarone) 200 mg PO DAILY JANESSA Aspirin (Halfprin) 81 mg PO DAILY JANESSA Docusate Sodium (Colace) 200 mg PO BEDTIME JANESSA Furosemide (Lasix) 20 mg PO TID JANESSA Heparin Sodium (Porcine) (Heparin Sodium) 5,000 units SUBCUT Q8HR JANESSA Levothyroxine Sodium (Levothyroxine) 125 mcg PO ACBRK JANESSA Metoprolol Tartrate (Lopressor) 25 mg PO BID JANESSA Non-Formulary Medication (Atorvastatin [Lipitor]) 40 mg PO BEDTIME JANESSA Non-Formulary Medication (Multivitamin [Multi-Vitamin Daily]) 1 tab PO DAILY JANESSA Non-Formulary Medication (Potassium Chloride [Potassium Chloride]) 1 tab PO BID [facility] Sodium Chloride (Saline Flush) 10 ml FLUSH ASDIRECTED PRN PRN Reason: Keep Vein Open Warfarin Sodium (Coumadin) 5 mg PO DAILY@1400 [facility] Zolpidem Tartrate (Ambien) 5 mg PO BEDTIME PRN PRN Reason: Sleep Assessment/Plan Comment:: The patient is a 67-year-old lady who recently had bypass surgery for coronary artery disease, a few weeks later had rehospitalization for congestive heart failure, bradycardia, pacemaker placement. The patient has a postoperative atrial fibrillation since bypass surgery. #1 shortness of breath is likely due to acute on chronic diastolic congestive heart failure with left sided pleural effusion I will increase the patient's Lasix from 20 mg twice a day to 3 times a day. Continue supplemental potassium Continue current dose of beta carol At this point will not do therapeutic thoracentesis given the patient's anticoagulation status and I hope with diuretics that effusion can be managed. #2 atrial fibrillation Appears to have regular heart rate now. Continue amiodarone, metoprolol. Anticoagulation with Coumadin will be continued for target INR between 2 and 3. #3 hypothyroidism Continue treatment with Synthroid
[2017-09-10] MEDS ORDERED: Warfarin 5 MG Tab PO SCH (19:00)
[2017-09-10] MEDS ORDERED: Docusate Sodium 100 MG Cap PO SCH (21:00)
[2017-09-10] MEDS ORDERED: atorvaSTATin 20 MG Tab PO SCH (21:00)
[2017-09-10] MEDS: Potassium Chloride 10 MEQ Tab.ER PO SCH (21:01)
[2017-09-10] MEDS: Metoprolol Tartrate 25 MG Tab PO SCH (21:02)
[2017-09-10] MEDS: Furosemide 20 MG Tab PO SCH (21:02)
[2017-09-10] MEDS ORDERED: Heparin Sodium 5,000 Units/ML Vial SUBCUT SCH (22:00)
[2017-09-11] MEDS ORDERED: Levothyroxine 125 MCG Tab PO SCH (06:00)
[2017-09-11 06:24] LABS: CHLORIDE,CL 103 mmol/L (101-111); SODIUM,NA 138 mmol/L (135-145)
[2017-09-11] MEDS ORDERED: Furosemide 20 MG Tab PO SCH (08:00)
[2017-09-11] MEDS: Metoprolol Tartrate 25 MG Tab PO SCH (08:39)
[2017-09-11] MEDS: Furosemide 20 MG Tab PO SCH (08:39)
[2017-09-11] MEDS: Potassium Chloride 10 MEQ Tab.ER PO SCH (08:39)
[2017-09-11 08:40] VITALS: BP 117/86
[2017-09-11] MEDS ORDERED: Aspirin 81 MG Tab.EC PO SCH (09:00)
[2017-09-11] MEDS ORDERED: Multivitamins,Therapeutic Tab PO SCH (09:00)
[2017-09-11] MEDS ORDERED: Amiodarone 200 MG Tab PO SCH (09:00)
--- NOTE | 2017-09-11 10:48 | PCM.DCSUM1 ---
Discharge Summary - Hospital Course Free Text/Narrative:: The patient is a 67-year-old lady who recently had bypass surgery for coronary artery disease, a few weeks later had rehospitalization for congestive heart failure, bradycardia, pacemaker placement. The patient has a postoperative atrial fibrillation since bypass surgery. #1 shortness of breath is likely due to acute on chronic diastolic congestive heart failure with left sided pleural effusion She significantly improved after an extra dose of Lasix. For the next 3 days I will increase the patient's Lasix from 20 mg twice a day to 40 mg in the morning and 20 in the evening.. Continue supplemental potassium Continue current dose of beta carol At this point will not do therapeutic thoracentesis given the patient's anticoagulation status and I hope with diuretics that effusion can be managed. We'll follow-up with her primary care physician. Consider repeating chest x-ray in a week or 2 to evaluate for effusion. #2 atrial fibrillation Appears to have regular heart rate now. Continue amiodarone, metoprolol. Anticoagulation with Coumadin will be continued for target INR between 2 and 3. #3 hypothyroidism Continue treatment with Synthroid Diagnosis: Stroke: No - Discharge Data Discharge Date: 09/11/17 Discharge Disposition: Home, Self-Care 01 Condition: Good - Discharge Diagnosis/Problem(s) (1) CHF (congestive heart failure) SNOMED Code(s): 50070152 ICD Code: I50.9 - HEART FAILURE, UNSPECIFIED Status: Acute Current Visit : No Qualifiers: Heart failure type: diastolic Heart failure chronicity: acute Qualified Code(s): I50.31 - Acute diastolic (congestive) heart failure (2) Shortness of breath SNOMED Code(s): 639724317 ICD Code: R06.02 - SHORTNESS OF BREATH Status: Acute Current Visit: No - Patient Instructions Diet: Heart Healthy Diet Activity: As Tolerated - Discharge Plan Prescriptions/Med Rec: Furosemide [Lasix] 1 tab PO BID #60 tablet Home Medications: Home Meds Calcium Carb & Citrate/Vit D3 [Calcium + Vitamin D3 Caplet] 1 tab PO BID [History] Levothyroxine 125 mcg PO DAILY 12/10/13 [History] Multivitamin [Multi-Vitamin Daily] 1 tab PO DAILY 12/10/13 [History] Aspirin [Ecotrin] 1 tab PO DAILY 10/11/16 [History] Propylene Glycol [Systane Balance] 1 drop EYEBOTH QID PRN 10/11/16 [History] Acetaminophen [Tylenol Extra Strength] 1 tab PO Q4H PRN 09/02/17 [History] Amiodarone HCl [Pacerone] 1 tab PO DAILY 09/02/17 [History] Aspirin [Halfprin] 1 tab PO DAILY 09/02/17 [History] Docusate Sodium 2 cap PO BEDTIME 09/02/17 [History] Metoprolol Tartrate [Lopressor] 25 mg PO BID 09/02/17 [History] Nitroglycerin [Nitrostat] 1 tab SL ASDIRECTED PRN 09/02/17 [History] Potassium Chloride 1 tab PO BID 09/02/17 [History] Psyllium Husk 1 tsp PO DAILY 09/02/17 [History] atorvaSTATin [Lipitor] 40 mg PO BEDTIME 09/02/17 [History] Warfarin [Coumadin] 5 mg PO DAILY 09/10/17 [History] Furosemide [Lasix] 1 tab PO BID #60 tablet 09/11/17 [Rx] Warfarin [Coumadin] 5 mg PO DAILY@1400 tablet 09/11/17 [Rx] Zolpidem [Ambien] 5 mg PO BEDTIME PRN tablet 09/11/17 [Rx] Referrals: PCP,Unobtain [Primary Care Provider] - (in 3 days) - General Info Date of Service: 09/11/17 Admission Dx/Problem (Free Text: Admission Diagnosis/Problem Admission Diagnosis/Problem Shortness of breath Subjective Update: She is feeling much better. No chest pain, no shortness of breath. - Review of Systems General: Denies: Fever, Weakness Pulmonary: Denies: Shortness of Breath Cardiovascular: Denies: Chest Pain Gastrointestinal: Denies: Abdominal Pain Neurological: Denies: Confusion - Patient Data Vitals - Most Recent: Last Vital Signs Temp 36.6 C 09/11/17 08:00 Pulse 92 09/11/17 08:39 Resp 18 09/11/17 08:00 BP 117/86 09/11/17 08:39 Pulse Ox 94 L 09/11/17 08:00 Weight - Most Recent: 101.605 kg I&O - Last 24 hours: Intake & Output 09/10/17 09/11/17 09/11/17 22:59 06:59 14:59 Intake Total 240 800 Output Total 1417 1225 Balance -1460 -425 Lab Results - Last 24 hrs: Laboratory Results - last 24 hr 09/10/17 09/10/17 09/10/17 Range/Units 16:08 16:08 16:08 WBC 8.0 (5.0-10.0) 10^3/uL RBC 3.50 L (4.2-5.4) 10^6/uL Hgb 10.9 L (12.0-16.0) g/dL Hct 34.4 L (37.0-47.0) % MCV 98.3 (80-100) fL MCH 31.1 (27.0-34.0) pg MCHC 31.7 L (33.0-35.0) g/dL Plt Count 242 D (150-450) 10^3/uL Neut % (Auto) 50.2 (42.2-75.2) % Lymph % (Auto) 34.0 (20.5-50.1) % [place] % (Auto) 9.4 H (2-8) % Eos % (Auto) 6.0 H (1.0-3.0) % Baso % (Auto) 0.4 (0.0-1.0) % PT 20.7 H D (9.0-12.0) SEC INR 2.1 H (0.9-1.2) Sodium 139 (135-145) mmol/L Potassium 4.0 (3.6-5.0) mmol/L Chloride 103 (101-111) mmol/L Carbon Dioxide 28.0 (21.0-31.0) mmol/L Anion Gap 12.0 BUN 12 (7-18) mg/dL Creatinine 0.9 (0.6-1.3) mg/dL Est Cr Clr Drug Dosing 53.09 mL/min Estimated GFR (MDRD) > 60 BUN/Creatinine Ratio 13.33 Glucose 98 (74-105) mg/dL Calcium 9.1 (8.4-10.2) mg/dl Total Bilirubin 0.7 (0.2-1.0) mg/dL AST 22 (10-42) IU/L ALT 14 (10-60) IU/L Alkaline Phosphatase 77 (42-121) IU/L Creatine Kinase (26-174) IU/L Creatine Kinase Index (0-2.4) % CK-MB (CK-2) (0.4-4.7) ng/mL Troponin I < 0.02 (0.00-0.02) ng/ml B-Natriuretic Peptide 148 H (0-100) pg/ml Total Protein 6.7 (6.7-8.2) g/dl Albumin 3.5 (3.2-5.5) g/dl Globulin 3.2 Albumin/Globulin Ratio 1.09 Urine Color (YELLOW) Urine Appearance (CLEAR) Urine pH (5.0-9.0) Ur Specific [place] (1.005-1.030) Urine Protein (NEGATIVE) Urine Glucose (UA) (NEGATIVE) Urine Ketones (NEGATIVE) Urine Occult Blood (NEGATIVE) Urine Nitrite (NEGATIVE) Urine Bilirubin (NEGATIVE) Urine Urobilinogen (0.2-1.0) mg/dL Ur Leukocyte Esterase (NEGATIVE) Urine RBC /HPF Urine WBC (0-5/HPF) /HPF Ur Epithelial Cells /HPF Urine Bacteria (0-FEW/HPF) /HPF 09/10/17 09/10/17 09/10/17 Range/Units 16:08 16:57 23:00 WBC (5.0-10.0) 10^3/uL RBC (4.2-5.4) 10^6/uL Hgb (12.0-16.0) g/dL Hct (37.0-47.0) % MCV (80-100) fL MCH (27.0-34.0) pg MCHC (33.0-35.0) g/dL Plt Count (150-450) 10^3/uL Neut % (Auto) (42.2-75.2) % Lymph % (Auto) (20.5-50.1) % [place] % (Auto) (2-8) % Eos % (Auto) (1.0-3.0) % Baso % (Auto) (0.0-1.0) % PT (9.0-12.0) SEC INR (0.9-1.2) Sodium (135-145) mmol/L Potassium (3.6-5.0) mmol/L Chloride (101-111) mmol/L Carbon Dioxide (21.0-31.0) mmol/L Anion Gap BUN (7-18) mg/dL Creatinine (0.6-1.3) mg/dL Est Cr Clr Drug Dosing mL/min Estimated GFR (MDRD) BUN/Creatinine Ratio Glucose (74-105) mg/dL Calcium (8.4-10.2) mg/dl Total Bilirubin (0.2-1.0) mg/dL AST (10-42) IU/L ALT (10-60) IU/L Alkaline Phosphatase (42-121) IU/L Creatine Kinase 30 (26-174) IU/L Creatine Kinase Index 3.0 H (0-2.4) % CK-MB (CK-2) 0.90 (0.4-4.7) ng/mL Troponin I < 0.02 (0.00-0.02) ng/ml B-Natriuretic Peptide (0-100) pg/ml Total Protein (6.7-8.2) g/dl Albumin (3.2-5.5) g/dl Globulin Albumin/Globulin Ratio Urine Color Light yellow (YELLOW) Urine Appearance Clear (CLEAR) Urine pH 7.0 (5.0-9.0) Ur Specific [place] 1.010 (1.005-1.030) Urine Protein Negative (NEGATIVE) Urine Glucose (UA) Negative (NEGATIVE) Urine Ketones Negative (NEGATIVE) Urine Occult Blood Negative (NEGATIVE) Urine Nitrite Negative (NEGATIVE) Urine Bilirubin Negative (NEGATIVE) Urine Urobilinogen 0.2 (0.2-1.0) mg/dL Ur Leukocyte Esterase Negative (NEGATIVE) Urine RBC 0-5 /HPF Urine WBC 0-5 (0-5/HPF) /HPF Ur Epithelial Cells Rare /HPF Urine Bacteria Rare (0-FEW/HPF) /HPF 18/18 Range/Units 05:20 WBC (5.0-10.0) 10^3/uL RBC (4.2-5.4) 10^6/uL Hgb (12.0-16.0) g/dL Hct (37.0-47.0) % MCV (80-100) fL MCH (27.0-34.0) pg MCHC (33.0-35.0) g/dL Plt Count (150-450) 10^3/uL Neut % (Auto) (42.2-75.2) % Lymph % (Auto) (20.5-50.1) % [place] % (Auto) (2-8) % Eos % (Auto) (1.0-3.0) % Baso % (Auto) (0.0-1.0) % PT (9.0-12.0) SEC INR (0.9-1.2) Sodium 138 (135-145) mmol/L Potassium 3.8 (3.6-5.0) mmol/L Chloride 103 (101-111) mmol/L Carbon Dioxide 26.0 (21.0-31.0) mmol/L Anion Gap 12.8 BUN 11 (7-18) mg/dL Creatinine 0.9 (0.6-1.3) mg/dL Est Cr Clr Drug Dosing 53.09 mL/min Estimated GFR (MDRD) > 60 BUN/Creatinine Ratio Glucose 99 (74-105) mg/dL Calcium 8.7 (8.4-10.2) mg/dl Total Bilirubin (0.2-1.0) mg/dL AST (10-42) IU/L ALT (10-60) IU/L Alkaline Phosphatase (42-121) IU/L Creatine Kinase (26-174) IU/L Creatine Kinase Index (0-2.4) % CK-MB (CK-2) (0.4-4.7) ng/mL Troponin I (0.00-0.02) ng/ml B-Natriuretic Peptide (0-100) pg/ml Total Protein (6.7-8.2) g/dl Albumin (3.2-5.5) g/dl Globulin Albumin/Globulin Ratio Urine Color (YELLOW) Urine Appearance (CLEAR) Urine pH (5.0-9.0) Ur Specific [place] (1.005-1.030) Urine Protein (NEGATIVE) Urine Glucose (UA) (NEGATIVE) Urine Ketones (NEGATIVE) Urine Occult Blood (NEGATIVE) Urine Nitrite (NEGATIVE) Urine Bilirubin (NEGATIVE) Urine Urobilinogen (0.2-1.0) mg/dL Ur Leukocyte Esterase (NEGATIVE) Urine RBC /HPF Urine WBC (0-5/HPF) /HPF Ur Epithelial Cells /HPF Urine Bacteria (0-FEW/HPF) /HPF Med Orders - Current: Current Medications Acetaminophen (Tylenol Extra Strength) 500 mg PO Q4H PRN PRN Reason: Pain Last Admin: 09/11/17 01:25 Dose: 500 mg Amiodarone HCl (Cordarone) 200 mg PO DAILY [facility] Last Admin: 09/11/17 08:39 Dose: 200 mg Aspirin (Halfprin) 81 mg PO DAILY [facility] Last Admin: 09/11/17 08:39 Dose: 81 mg Atorvastatin Calcium (Lipitor) 40 mg PO BEDTIME [facility] Last Admin: 09/10/17 21:02 Dose: 40 mg Docusate Sodium (Colace) 200 mg PO BEDTIME [facility] Last Admin: 09/10/17 21:02 Dose: 200 mg Furosemide (Lasix) 20 mg PO TID [facility] Last Admin: 09/11/17 08:39 Dose: 20 mg Levothyroxine Sodium (Levothyroxine) 125 mcg PO ACBRK [facility] Last Admin: 09/11/17 05:57 Dose: 125 mcg Metoprolol Tartrate (Lopressor) 25 mg PO BID [facility] Last Admin: 09/11/17 08:39 Dose: 25 mg Multivitamins (Thera) 1 each PO DAILY [facility] Last Admin: 09/11/17 08:39 Dose: 1 each Potassium Chloride (Klor-Con 10) 10 meq PO BID [facility] Last Admin: 09/11/17 08:39 Dose: 10 meq Sodium Chloride (Saline Flush) 10 ml FLUSH ASDIRECTED PRN PRN Reason: Keep Vein Open Last Admin: 09/11/17 08:45 Dose: 10 ml Warfarin Sodium (Coumadin) 5 mg PO DAILY@1400 [facility] Last Admin: 09/10/17 19:09 Dose: 5 mg Zolpidem Tartrate (Ambien) 5 mg PO BEDTIME PRN PRN Reason: Sleep Discontinued Medications Furosemide (Lasix) 20 mg PO BIDDIURETIC [facility] Heparin Sodium (Porcine) (Heparin Sodium) 5,000 units SUBCUT Q8HR [facility] - Exam General: Reports: Alert, Oriented Neck: Reports: Supple Lungs: Reports: Decreased Breath Sounds (Left base) Cardiovascular: Reports: Regular Rate, Regular Rhythm GI/Abdominal Exam: Normal Bowel Sounds, Soft, Non-Tender Extremities: No Pedal Edema Skin: Reports: Warm, Dry Neurological: Reports: No New Focal Deficit
--- NOTE | 2017-09-12 07:16 | EKG ---
09/10/2017- CLINTON CHANDLER - EKG per my reading shows sinus rhythm at the rate of 71 with incomplete right bundle branch block. [facility] /[id number]
== END 2017-09-11 12:00 | disposition home or self-care (01) ==
LOC: DL.ED 15:30 → UNDOADMOB 17:20 → DL.MS 17:20
PROVIDERS: ADMIT Internal Medicine; ATTEND Internal Medicine
DX: R06.02 Shortness of breath (principal); R07.89 Other chest pain; I11.0 Hypertensive heart disease with heart failure; I50.33 Acute on chronic diastolic (congestive) heart failure; J90 Pleural effusion, not elsewhere classified; Z95.0 Presence of cardiac pacemaker; I48.91 Unspecified atrial fibrillation; E78.00 Pure hypercholesterolemia, unspecified; E03.9 Hypothyroidism, unspecified; Z87.891 Personal history of nicotine dependence; Z79.01 Long term (current) use of anticoagulants; Z79.82 Long term (current) use of aspirin; Z79.899 Other long term (current) drug therapy; Z95.1 Presence of aortocoronary bypass graft; Z88.5 Allergy status to narcotic agent
CPT/HCPCS: 36415; 71045; 80048; 80053; 81001; 82550; 82553; 83880; 84484; 85025; 85610; 93005; 93010; 99217; 99284; A9270-GY; G0378; J7050

== ENCOUNTER 2019-11-03 23:42 | Emergency (ER) | payer MEDICARE, OTHER ==
[2019-11-03 23:49] VITALS: PULSE 92
[2019-11-04] MEDS ORDERED: Phenazopyridine 95 MG Tab PO ONE (00:05)
[2019-11-04] MEDS ORDERED: Ciprofloxacin 500 MG Tab PO ONE (00:06)
[2019-11-04 00:11] VITALS: BP 143/77
[2019-11-04 00:23] LABS: ANION GAP 13.7 mEq/L (7-13); CHLORIDE,CL 101 mmol/L (98-107); SODIUM,NA 138 mmol/L (136-145)
--- NOTE | 2019-11-04 00:43 | EDM.PDOC ---
ED HPI GENERAL MEDICAL PROBLEM - General Chief Complaint: Genitourinary Problem Stated Complaint: UTI Time Seen by Provider: 11/03/19 23:45 Source of Information: Reports: Patient History Limitations: Reports: No Limitations - History of Present Illness INITIAL COMMENTS - FREE TEXT/NARRATIVE: ED with c/o urinary frequency and burning since yesterday, blood in urine. Denies fever chills or flank pain. no vomiting. No cough or breathing difficulty. On coumadin for A-fib. INR usually stable. last check 3 weeks ago. Bladder Pain Score (Numeric/FACES): 9 - Related Data Allergies Allergy/AdvReac Type Severity Reaction Status Date / Time codeine Allergy Itching Verified 11/03/19 23:53 Home Meds: Home Meds Calcium Carb & Citrate/Vit D3 [Calcium + Vitamin D3 Caplet] 1 tab PO BID 12/10/13 [History] Levothyroxine 125 mcg PO DAILY 12/10/13 [History] Aspirin [Ecotrin EC] 81 mg PO DAILY 10/11/16 [History] Acetaminophen [Tylenol Extra Strength] 500 mg PO Q4H PRN 09/02/17 [History] Docusate Sodium 200 mg PO BEDTIME 09/02/17 [History] Metoprolol Tartrate [Lopressor] 25 mg PO BID 09/02/17 [History] Nitroglycerin [Nitrostat] 1 tab SL ASDIRECTED PRN 09/02/17 [History] Warfarin [Coumadin] 7.5 mg PO ASDIRECTED 09/10/17 [History] Warfarin [Coumadin] 5 mg PO ASDIRECTED 10/16/17 [History] hydroCHLOROthiazide [Hydrochlorothiazide] 12.5 mg PO DAILY 10/14/18 [History] Losartan [Cozaar] 50 mg PO DAILY 11/03/19 [History] Past Medical History HEENT History: Reports: Cataract Cardiovascular History: Reports: Afib, Heart Failure, High Cholesterol, Hypertension, Pacemaker Respiratory History: Reports: None Gastrointestinal History: Reports: Diverticulosis Genitourinary History: Reports: None, UTI, Recurrent [employer] History: Reports: Musculoskeletal History: Reports: Arthritis Neurological History: Reports: None Psychiatric History: Reports: None Endocrine/Metabolic History: Reports: Hypothyroidism Hematologic History: Reports: None Immunologic History: Reports: None Oncologic (Cancer) History: Reports: Breast Dermatologic History: Reports: None Other Dermatologic History: slight rash to back of legs - Infectious Disease History Infectious Disease History: Reports: Chicken Pox, Measles, Mumps, Other (See Below) Other Infectious Disease History: streptococcal sepsis R) ankle - Past Surgical History Head Surgeries/Procedures: Reports: None HEENT Surgical History: Reports: Cataract Surgery, Eye Surgery Other HEENT Surgeries/Procedures: 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 Cardiovascular Surgical History: Reports: None, Coronary Artery Bypass GI Surgical History: Reports: Appendectomy, Colonoscopy, Small Bowel Female Surgical History: Reports: Hysterectomy, Mastectomy, Salpingo- Oophorectomy, Other (See Below) Other Female Surgeries/Procedures: bilateral mastectomy Musculoskeletal Surgical History: Reports: Knee Replacement Social & Family History - Family History Family Medical History: Noncontributory Cardiac: Reports: Angina, Heart Failure, Hypertension Musculoskeletal: Reports: Arthritis Endocrine/Metabolic: Reports: Diabetes, type II Oncologic: Reports: Breast, Lymphoma, Ovarian - Tobacco Use Smoking Status *Q: Never Smoker Second Hand Smoke Exposure: No - Caffeine Use Caffeine Use: Reports: Coffee, Tea Other Caffeine Use: 2 cups of coffee daily - Recreational Drug Use Recreational Drug Use: No ED ROS GENERAL - Review of Systems Review Of Systems: Comprehensive ROS is negative, except as noted in HPI. ED EXAM, RENAL/ - Physical Exam Exam: See Below General Appearance: Alert, Mild Distress Eye Exam: Bilateral Eye: EOMI Ears: Normal External Exam Nose: Normal Inspection Throat/Mouth: Normal Inspection Head: Atraumatic, Normocephalic Neck: Normal Inspection Respiratory/Chest: No Respiratory Distress, Lungs Clear, Normal Breath Sounds Cardiovascular: Normal Peripheral Pulses, Regular Rate, Rhythm GI/Abdominal: Normal Bowel Sounds, Other (suprapubic) Back Exam: No: CVA Tenderness (L), CVA Tenderness (R) Extremities: Normal Inspection Neurological: Alert, Oriented, Normal Cognition Psychiatric: Normal Affect Skin Exam: Warm, Dry, Intact, Normal Color Course - Vital Signs Last Recorded V/S: Last Vital Signs Temp 97.6 F 11/03/19 23:44 Pulse 92 11/03/19 23:44 Resp 18 11/03/19 23:44 BP 143/77 H 11/04/19 00:10 Pulse Ox 96 11/03/19 23:44 - Orders/Labs/Meds Orders: Active Orders 24 hr Category Date Time Status CULTURE URINE [RM] Stat Lab 11/03/19 23:44 Received Labs: Laboratory Tests 11/03/19 11/03/19 11/03/19 Range/Units 23:44 23:55 23:55 WBC 9.4 (5.0-10.0) 10^3/uL RBC 4.18 L (4.2-5.4) 10^6/uL Hgb 13.3 (12.0-16.0) g/dL Hct 40.0 (37.0-47.0) % MCV 95.7 D (80-100) fL MCH 31.8 (27.0-34.0) pg MCHC 33.3 (33.0-35.0) g/dL Plt Count 247 D (150-450) 10^3/uL Neut % (Auto) 56.8 (42.2-75.2) % Lymph % (Auto) 32.1 (20.5-50.1) % [place] % (Auto) 8.8 H (2-8) % Eos % (Auto) 2.0 (1.0-3.0) % Baso % (Auto) 0.3 (0.0-1.0) % PT (9.0-12.0) SEC INR (0.9-1.2) Sodium 138 (136-145) mmol/L Potassium 3.7 (3.5-5.1) mmol/L Chloride 101 (98-107) mmol/L Carbon Dioxide 27 (21-32) mmol/L Anion Gap 13.7 H (7-13) mEq/L BUN 13 (7-18) mg/dL Creatinine 1.02 (0.55-1.02) mg/dL Est Cr Clr Drug Dosing 45.52 mL/min Estimated GFR (MDRD) 53 BUN/Creatinine Ratio 12.7 (No establ ref range) Glucose 114 H (74-99) mg/dL Calcium 9.1 (8.5-10.1) mg/dL Total Bilirubin 0.5 (0.2-1.0) mg/dL AST < 5 L (15-37) U/L ALT 16 (14-59) U/L Alkaline Phosphatase 94 (46-116) U/L Total Protein 7.4 (6.4-8.2) g/dL Albumin 3.6 (3.4-5.0) g/dL Globulin 3.8 Albumin/Globulin Ratio 0.9 Urine Color Red (YELLOW) Urine Appearance Slightly cloudy (CLEAR) Urine pH 6.5 (5.0-9.0) Ur Specific [place] 1.010 (1.005-1.030) Urine Protein >=300 H (NEGATIVE) Urine Glucose (UA) Negative (NEGATIVE) Urine Ketones Trace H (NEGATIVE) Urine Occult Blood Large H (NEGATIVE) Urine Nitrite Positive H (NEGATIVE) Urine Bilirubin Moderate H (NEGATIVE) Urine Urobilinogen 0.2 (0.2-1.0) mg/dL Ur Leukocyte Esterase Large H (NEGATIVE) Urine RBC Packed H /HPF Urine WBC Packed H (0-5/HPF) /HPF Ur Epithelial Cells Moderate H (NOT SEEN) /HPF Urine Bacteria Many H (0-FEW/HPF) /HPF /12/14 Range/Units 23:55 WBC (5.0-10.0) 10^3/uL RBC (4.2-5.4) 10^6/uL Hgb (12.0-16.0) g/dL Hct (37.0-47.0) % MCV (80-100) fL MCH (27.0-34.0) pg MCHC (33.0-35.0) g/dL Plt Count (150-450) 10^3/uL Neut % (Auto) (42.2-75.2) % Lymph % (Auto) (20.5-50.1) % [place] % (Auto) (2-8) % Eos % (Auto) (1.0-3.0) % Baso % (Auto) (0.0-1.0) % PT 31.1 H D (9.0-12.0) SEC INR 3.3 H (0.9-1.2) Sodium (136-145) mmol/L Potassium (3.5-5.1) mmol/L Chloride (98-107) mmol/L Carbon Dioxide (21-32) mmol/L Anion Gap (7-13) mEq/L BUN (7-18) mg/dL Creatinine (0.55-1.02) mg/dL Est Cr Clr Drug Dosing mL/min Estimated GFR (MDRD) BUN/Creatinine Ratio (No establ ref range) Glucose (74-99) mg/dL Calcium (8.5-10.1) mg/dL Total Bilirubin (0.2-1.0) mg/dL AST (15-37) U/L ALT (14-59) U/L Alkaline Phosphatase (46-116) U/L Total Protein (6.4-8.2) g/dL Albumin (3.4-5.0) g/dL Globulin Albumin/Globulin Ratio Urine Color (YELLOW) Urine Appearance (CLEAR) Urine pH (5.0-9.0) Ur Specific [place] (1.005-1.030) Urine Protein (NEGATIVE) Urine Glucose (UA) (NEGATIVE) Urine Ketones (NEGATIVE) Urine Occult Blood (NEGATIVE) Urine Nitrite (NEGATIVE) Urine Bilirubin (NEGATIVE) Urine Urobilinogen (0.2-1.0) mg/dL Ur Leukocyte Esterase (NEGATIVE) Urine RBC /HPF Urine WBC (0-5/HPF) /HPF Ur Epithelial Cells (NOT SEEN) /HPF Urine Bacteria (0-FEW/HPF) /HPF Meds: Medications Discontinued Medications Generic Name Dose Route Start Last Admin Trade Name Freq PRN Reason Stop Dose Admin Ciprofloxacin 500 mg 11/04/19 00:06 11/04/19 00:11 Ciprofloxacin Hcl PO 11/04/19 00:07 500 mg ONETIME ONE Administration Phenazopyridine HCl 190 mg 11/04/19 00:05 11/04/19 00:11 Urinary Pain Relief PO 11/04/19 00:06 190 mg ONETIME ONE Administration Departure - Departure Time of Disposition: 00:40 Disposition: Home, Self-Care 01 Condition: Good Clinical Impression: UTI, Urinary tract infectious disease - Discharge Information *PRESCRIPTION DRUG MONITORING PROGRAM REVIEWED*: No *COPY OF PRESCRIPTION DRUG MONITORING REPORT IN PATIENT SAIMA: No Instructions: Urinary Tract Infection, Adult, [id number] Additional Instructions: pyridium 200mg every 8 hours as needed for urinary spasm fluids cipro 500mg one twice daily for 5 days recheck INR in clinic mid week follow up if fever chills flank pain Sepsis Event Note (ED) - Evaluation Sepsis Screening Result: No Definite Risk - Focused Exam Vital Signs: Vital Signs Temp Pulse Resp BP Pulse Ox 11/04/19 00:10 143/77 H 11/03/19 23:44 97.6 F 92 18 198/112 H 96 - My Orders Last 24 Hours: My Active Orders 11/03/19 23:44 CULTURE URINE [RM] Stat - Assessment/Plan Last 24 Hours: My Active Orders 11/03/19 23:44 CULTURE URINE [RM] Stat
== END 2019-11-04 00:48 | disposition home or self-care (01) ==
LOC: DL.ED 23:42
DX: N39.0 Urinary tract infection, site not specified (principal); I48.91 Unspecified atrial fibrillation; E78.00 Pure hypercholesterolemia, unspecified; I11.0 Hypertensive heart disease with heart failure; I50.9 Heart failure, unspecified; M19.90 Unspecified osteoarthritis, unspecified site; E03.9 Hypothyroidism, unspecified; Z88.5 Allergy status to narcotic agent; Z79.82 Long term (current) use of aspirin; Z79.899 Other long term (current) drug therapy; Z79.01 Long term (current) use of anticoagulants
CPT/HCPCS: 36415; 80053; 81001; 85025; 85610; 87086; 87088; 87186; 99283; A9270-GY

== ENCOUNTER 2020-12-11 00:39 | Emergency (ER) | payer MEDICARE, OTHER ==
[2020-12-11 01:21] VITALS: BP 129/79; PULSE 77
[2020-12-11] MEDS: Sodium Chloride 0.9% 10 ML Syringe FLUSH PRN (01:32)
--- NOTE | 2020-12-11 01:41 | EDM.PDOC ---
"ED HPI GENERAL MEDICAL PROBLEM - General Chief Complaint: General Stated Complaint: AMBULANCE Time Seen by Provider: 12/11/20 01:25 Source of Information: Reports: Patient History Limitations: Reports: No Limitations - History of Present Illness INITIAL COMMENTS - FREE TEXT/NARRATIVE: Patient comes emergency department today by ambulance from home with concerns of abdominal pain and problems with her J-tube. This patient in the past 2 weeks has had her J-tube placed and replaced twice. Initially she had what she reported to have a puncture of her antrum of her stomach following the initial J-tube placement. She had a repeat J-tube placement in [place] about a week ago. Tonight she went and hooked up her continuous feedings which she is receiving due to her esophageal cancer. She woke up later and noted part of the incision where the liset are that it was leaking fluid consistent with her feedings. Over the past couple of days she has had abdominal distention and pain primarily in the upper regions of the abdomen. She had some bleeding from the incisional site couple of days ago although this has resolved. She has no fever no chills. No chest pain no shortness of breath or difficulty breathing. No cough or congestion. No nausea no vomiting. No hematuria dysuria urinary frequency. - Related Data Allergies Allergy/AdvReac Type Severity Reaction Status Date / Time codeine Allergy Itching Verified 11/03/19 23:53 Home Meds: Home Meds Calcium Carb & Citrate/Vit D3 [Calcium + Vitamin D3 Caplet] 1 tab PO BID 12/10/13 [History] Levothyroxine 125 mcg PO DAILY 12/10/13 [History] Aspirin [Ecotrin EC] 81 mg PO DAILY 10/11/16 [History] Acetaminophen [Tylenol Extra Strength] 500 mg PO Q4H PRN 09/02/17 [History] Docusate Sodium 200 mg PO BEDTIME 09/02/17 [History] Metoprolol Tartrate [Lopressor] 25 mg PO BID 09/02/17 [History] Nitroglycerin [Nitrostat] 1 tab SL ASDIRECTED PRN 09/02/17 [History] Warfarin [Coumadin] 7.5 mg PO ASDIRECTED 09/10/17 [History] Warfarin [Coumadin] 5 mg PO ASDIRECTED 10/16/17 [History] hydroCHLOROthiazide [Hydrochlorothiazide] 12.5 mg PO DAILY 10/14/18 [History] Losartan [Cozaar] 50 mg PO DAILY 11/03/19 [History] Past Medical History HEENT History: Reports: Cataract Cardiovascular History: Reports: Afib, Heart Failure, High Cholesterol, Hypertension, Pacemaker Respiratory History: Reports: None Gastrointestinal History: Reports: Diverticulosis Genitourinary History: Reports: None, UTI, Recurrent SOUND EFFECTS PERSON History: Reports: Musculoskeletal History: Reports: Arthritis Neurological History: Reports: None Psychiatric History: Reports: None Endocrine/Metabolic History: Reports: Hypothyroidism Hematologic History: Reports: None Immunologic History: Reports: None Oncologic (Cancer) History: Reports: Breast, Esophageal Dermatologic History: Reports: None Other Dermatologic History: slight rash to back of legs - Infectious Disease History Infectious Disease History: Reports: Chicken Pox, Measles, Mumps, Other (See Below) Other Infectious Disease History: streptococcal sepsis R) ankle - Past Surgical History Head Surgeries/Procedures: Reports: None HEENT Surgical History: Reports: Cataract Surgery, Eye Surgery Other HEENT Surgeries/Procedures: bilateral eye surg as an for crossed eyes. Cardiovascular Surgical History: Reports: None, Coronary Artery Bypass GI Surgical History: Reports: Appendectomy, Colonoscopy, Small Bowel Female Surgical History: Reports: Hysterectomy, Mastectomy, Salpingo-Oo phorectomy, Other (See Below) Other Female Surgeries/Procedures: bilateral mastectomy Neurological Surgical History: Reports: None Musculoskeletal Surgical History: Reports: Knee Replacement Social & Family History - Family History Family Medical History: No Pertinent Family History Cardiac: Reports: Angina, Heart Failure, Hypertension Musculoskeletal: Reports: Arthritis Endocrine/Metabolic: Reports: Diabetes, type II Oncologic: Reports: Breast, Lymphoma, Ovarian - Tobacco Use Tobacco Use Status *Q: Never Tobacco User Second Hand Smoke Exposure: No - Caffeine Use Caffeine Use: Reports: None Other Caffeine Use: 2 cups of coffee daily - Recreational Drug Use Recreational Drug Use: No ED ROS GENERAL - Review of Systems Review Of Systems: Comprehensive ROS is negative, except as noted in HPI. ED EXAM, GENERAL - Physical Exam Exam: See Below Exam Limited By: No Limitations General Appearance: Alert, WD/WN, No Apparent Distress, Obese Respiratory/Chest: No Respiratory Distress, Lungs Clear, No Accessory Muscle Use, Chest Non-Tender Cardiovascular: Normal Peripheral Pulses, Regular Rate, Rhythm GI/Abdominal: Distended (She is moderately distended in her abdomen primarily in the upper aspect. There is scattered bruising throughout the abd. No erythema or abscess. ), Guarding (She has guarding with rebound in the upper aspect of the abdomen as well.), Tender (The very cephalaud aspect of the supraumbilical incision is open aprox 2 cm with a large dehiscence under that area with discharge. ), Abnormal Bowel Sounds (She has hypoactive almost not present bowel sounds.), Other (There is a well-healed vertical incision below the umbilicus that is unremarkable. There is a J-tube at the 2 o'clock position just above t he umbilicus the site of insertion is unremarkable. Just medially to this there is approximately 8cm vertical incision that is well approximated with discharge). No: Rigid Back Exam: Normal Inspection Extremities: Normal Inspection, Normal Range of Motion, No Pedal Edema, Normal Capillary Refill Neurological: Alert, Oriented Psychiatric: Normal Affect Skin Exam: Dry, Intact, Normal Color, Cool Lymphatic: No Adenopathy Course - Vital Signs Last Recorded V/S: Last Vital Signs Temp 98.1 F 12/11/20 01:04 Pulse 77 12/11/20 01:04 Resp 16 12/11/20 01:04 BP 129/79 12/11/20 01:04 Pulse Ox 95 12/11/20 01:04 - Orders/Labs/Meds Orders: Active Orders 24 hr Category Date Time Status Peripheral IV Care [RC] . DIRECTED Care 12/11/20 01:17 Active CULTURE URINE [RM] Stat Lab 12/11/20 03:02 Received CULTURE WOUND [RM] Stat Lab 12/11/20 04:47 Ordered Sodium Chloride 0.9% [Saline Flush] Med 12/11/20 01:16 Active 10 ml FLUSH ASDIRECTED PRN Peripheral IV Insertion Adult [OM.PC] Stat Oth 12/11/20 01:16 Ordered Medication Orders Sodium Chloride (Sodium Chloride 0.9% 10 Ml Syringe) 10 ml FLUSH ASDIRECTED PRN PRN Reason: Keep Vein Open Last Admin: 12/11/20 01:32 Dose: 10 ml Documented by: ATA Labs: Laboratory Tests 12/11/20 12/11/20 12/11/20 Range/Units 01:25 01:25 01:25 WBC 3.6 L (5.0-10.0) 10^3/uL RBC 3.56 L (4.2-5.4) 10^6/uL Hgb 11.7 L D (12.0-16.0) g/dL Hct 35.8 L (37.0-47.0) % MCV 100.6 H D (80-100) fL MCH 32.9 (27.0-34.0) pg MCHC 32.7 L (33.0-35.0) g/dL Plt Count 296 (150-450) 10^3/uL Neut % (Auto) 80.3 H (42.2-75.2) % Lymph % (Auto) 8.6 L (20.5-50.1) % [place] % (Auto) 9.1 H (2-8) % Eos % (Auto) 1.7 (1.0-3.0) % Baso % (Auto) 0.3 (0.0-1.0) % PT 9.9 D (9.0-12.0) SEC INR 1.0 (0.9-1.2) APTT 28.5 (22.0-34.0) SEC Sodium 135 L (136-145) mmol/L Potassium 4.3 (3.5-5.1) mmol/L Chloride 102 (98-107) mmol/L Carbon Dioxide 24 (21-32) mmol/L Anion Gap 13.3 H (7-13) mEq/L BUN 12 (7-18) mg/dL Creatinine 0.74 (0.55-1.02) mg/dL Est Cr Clr Drug Dosing 61.83 mL/min Estimated GFR (MDRD) > 60 BUN/Creatinine Ratio 16.2 (No establ ref range) Glucose 104 H (70-99) mg/dL Lactic Acid (0.4-2.0) mmol/L Calcium 8.7 (8.5-10.1) mg/dL Total Bilirubin 0.4 (0.2-1.0) mg/dL AST 9 L (15-37) U/L ALT 12 L (14-59) U/L Alkaline Phosphatase 60 (46-116) U/L C-Reactive Protein 1.4 H (0.0-0.9) mg/dL Total Protein 6.7 (6.4-8.2) g/dL Albumin 2.9 L (3.4-5.0) g/dL Globulin 3.8 Albumin/Globulin Ratio 0.76 Lipase 70 L (73-393) U/L Urine Color (YELLOW) Urine Appearance (CLEAR) Urine pH (5.0-9.0) Ur Specific [place] (1.005-1.030) Urine Protein (NEGATIVE) Urine Glucose (UA) (NEGATIVE) Urine Ketones (NEGATIVE) Urine Occult Blood (NEGATIVE) Urine Nitrite (NEGATIVE) Urine Bilirubin (NEGATIVE) Urine Urobilinogen (0.2-1.0) mg/dL Ur Leukocyte Esterase (NEGATIVE) Urine RBC (0-5) /HPF Urine WBC (0-5/HPF) /HPF Ur Epithelial Cells (NOT SEEN) /HPF Urine Bacteria (0-FEW/HPF) /HPF SARS-CoV-2 RNA (PANCHO) (NEGATIVE) 12/11/20 12/11/20 12/11/20 Range/Units 01:25 01:32 03:02 WBC (5.0-10.0) 10^3/uL RBC (4.2-5.4) 10^6/uL Hgb (12.0-16.0) g/dL Hct (37.0-47.0) % MCV (80-100) fL MCH (27.0-34.0) pg MCHC (33.0-35.0) g/dL Plt Count (150-450) 10^3/uL Neut % (Auto) (42.2-75.2) % Lymph % (Auto) (20.5-50.1) % [place] % (Auto) (2-8) % Eos % (Auto) (1.0-3.0) % Baso % (Auto) (0.0-1.0) % PT (9.0-12.0) SEC INR (0.9-1.2) APTT (22.0-34.0) SEC Sodium (136-145) mmol/L Potassium (3.5-5.1) mmol/L Chloride (98-107) mmol/L Carbon Dioxide (21-32) mmol/L Anion Gap (7-13) mEq/L BUN (7-18) mg/dL Creatinine (0.55-1.02) mg/dL Est Cr Clr Drug Dosing mL/min Estimated GFR (MDRD) BUN/Creatinine Ratio (No establ ref range) Glucose (70-99) mg/dL Lactic Acid 2.1 H* (0.4-2.0) mmol/L Calcium (8.5-10.1) mg/dL Total Bilirubin (0.2-1.0) mg/dL AST (15-37) U/L ALT (14-59) U/L Alkaline Phosphatase (46-116) U/L C-Reactive Protein (0.0-0.9) mg/dL Total Protein (6.4-8.2) g/dL Albumin (3.4-5.0) g/dL Globulin Albumin/Globulin Ratio Lipase (73-393) U/L Urine Color Yellow (YELLOW) Urine Appearance Slightly cloudy (CLEAR) Urine pH 7.0 (5.0-9.0) Ur Specific [place] 1.020 (1.005-1.030) Urine Protein Negative (NEGATIVE) Urine Glucose (UA) Negative (NEGATIVE) Urine Ketones Negative (NEGATIVE) Urine Occult Blood Trace-intact H (NEGATIVE) Urine Nitrite Negative (NEGATIVE) Urine Bilirubin Negative (NEGATIVE) Urine Urobilinogen 0.2 (0.2-1.0) mg/dL Ur Leukocyte Esterase Small H (NEGATIVE) Urine RBC Not seen (0-5) /HPF Urine WBC 30-40 H (0-5/HPF) /HPF Ur Epithelial Cells Moderate H (NOT SEEN) /HPF Urine Bacteria Moderate H (0-FEW/HPF) /HPF SARS-CoV-2 RNA (PANCHO) Negative (NEGATIVE) Meds: Medications Generic Name Dose Route Start Last Admin Trade Name Freq PRN Reason Stop Dose Admin Sodium Chloride 10 ml 12/11/20 01:16 12/11/20 01:32 Sodium Chloride 0.9% 10 Ml Syringe FLUSH 10 ml ASDIRECTED PRN Administration Keep Vein Open Discontinued Medications Generic Name Dose Route Start Last Admin Trade Name Freq PRN Reason Stop Dose Admin Lactated Ringer's 1,000 mls @ 1,000 mls/hr 12/11/20 02:04 12/11/20 03:35 Ringers, Lactated IV 12/11/20 03:03 125 mls/hr .BOLUS ONE Infusion Piperacillin Sod/Tazobactam 100 mls @ 200 mls/hr 12/11/20 04:01 12/11/20 04:40 Sod 3.375 gm/ Sodium Chloride IV 12/11/20 04:30 200 mls/hr ONETIME ONE Administration Iopamidol 100 ml 12/11/20 02:36 12/11/20 02:37 Iopamidol 612 Mg/Ml 100 Ml Bottle IVPUSH 12/11/20 02:37 100 ml ONETIME ONE Administration Ondansetron HCl 4 mg 12/11/20 02:45 12/11/20 02:52 Ondansetron 4 Mg/2 Ml Sdv IV 12/11/20 02:46 4 mg ONETIME ONE Administration - Radiology Interpretation Free Text/Narrative:: [facility] Final Radiology Report Call: [phone] assistance Online chat: [email or web address] Name: CLINTON CHANDLER Age: 70Years F Date: 12/11/2020 SSN: -- : [id number] Study: CT ABDOMEN PELVIS W CONT Requesting Physician: GABRIEL ALVARADO Images: [id number] Addl Studies: Provided Clinical History: Recent J tube placement abd pain distention Contrast: With Contrast Medium: Isovue Contrast Amount: 100 mL Contrast Method: Intravenous (IV) Page 1 of 2 PROCEDURE INFORMATION: Exam: CT Abdomen And Pelvis With Contrast Exam date and time: 12/11/2020 2:28 AM Age: 70 years old Clinical indication: Abdominal pain; Prior surgery; Surgery date: 3-7 days post-operative; Surgery type: J tube; Additional info: Recent j tube placement abd pain distention TECHNIQUE: Imaging protocol: Computed tomography of the abdomen and pelvis with contrast. Radiation optimization: All CT scans at this facility use at least one of these dose optimization techniques: automated exposure control; mA and/or kV adjustment per patient size (includes targeted exams where dose is matched to clinical indication); or iterative reconstruction. Contrast material: ISOVUE; Contrast volume: 100 ml; Contrast route: INTRAVENOUS (IV); COMPARISON: CT Abdomen Pelvis w Cont 10/14/2018 2:18 AM FINDINGS: Tubes, catheters and devices: A percutaneous jejunostomy tube the is placed in the left upper abdomen, the balloon may be within the properitoneal fat. The position of the jejunostomy tip cannot be confirmed in the current examination. Lungs: Strandy opacities are seen in the lung bases bilaterally compatible with atelectasis versus parenchymal or pleural scarring. Mediastinal space: There is thickening of the distal esophageal wall, findings that could represent esophagitis. Liver: Normal. No mass. Gallbladder and bile ducts: There are hyperdensities seen in the dependent portion of the gallbladder compatible with tiny gallstones and/or gallbladder sludge. CLINTON CHANDLER | Final Radiology Report CONFIDENTIALITY STATEMENT This report is intended only for use by the referring physician, and only in accordance with law. If you received this in error, call [phone]. Page 2 of 2 Pancreas: Normal. No ductal dilation. Spleen: Normal. No splenomegaly. Adrenal glands: Normal. No mass. Kidneys and ureters: Strandy opacities are seen in the perinephric fascia bilaterally likely representing chronic scarring. Stomach and bowel: Unremarkable. No obstruction. No mucosal thickening. Appendix: No evidence of appendicitis. Intraperitoneal space: Some fluid is seen within the dependent portion of the pelvis. Vasculature: Unremarkable. No abdominal aortic aneurysm. Lymph nodes: Unremarkable. No enlarged lymph nodes. Urinary bladder: Gas densities are seen intraluminally within the bladder likely secondary to prior instrumentation. Reproductive: Status post hysterectomy. Bones/joints: Unremarkable. No acute fracture. Soft tissues: There is a open wound seen in the supraumbilical region on the midline . There is a fluid collection seen adjacent to the anterior abdominal wall in this region measuring approximately 4.1 cm transverse dimension by 6.7 cm craniocaudal dimension by 2.2 cm AP dimension. There are subcutaneous patchy opacities and gas densities seen in the epigastrium possibly representing postoperative changes. IMPRESSION: 1. Status post placement of a jejunostomy tube in the left epigastrium. The balloon appears to be present within the properitoneal space, the catheter tip location cannot be confirmed current examination. 2. There is a open surgical wound seen in the right epigastrium containing fluid attenuation within the anterior abdominal wall as described above. 3. Small subcutaneous patchy opacities containing gas densities are seen in the epigastrium as well possibly rib representing postoperative changes. 4. Multiple small gallstones and/or gallbladder sludge. 5. Thickening of the distal esophageal wall may represent chronic esophagitis. 6. Small volume of fluid seen in the pelvis. Thank you for allowing us to participate in the care of your patient. Dictated and Authenticated by: Brian Billingsley MD 12/11/2020 3:52 AM Central Time ([place] & [place]) - Re-Assessments/Exams Free Text/Narrative Re-Assessment/Exam: IV was established labs are drawn. 500 mill bolus of LR and 125 an hour as I am going to complete a CT scan with contrast. A culture of the wound dehiscence drainage which is rather foul-smelling thin pale green. There is no sign of cellulitic component around this area. Laboratory evaluation shows a white blood cell count of 3.6 which is down from approximately 9 on her [place] chart. Her hemoglobin today is 11.7 with a hemoglobin of 14.12 weeks ago. Platelet count 296 which is normal. Coagulation studies are normal. CMP with a sodium of 135, anion gap of 13.3, normal creatinine at 0.74, glucose 104. Liver enzymes are unremarkable. Lactic acid minimally elevated at 2.1. Mild elevation of her CRP at 1.4. Urinalysis small amount of leukocyte Estrace U WBCs 3040 moderate amount of bacteria. Urine culture pending. Covid is negative. CT of the abdomen pelvis question the placement of the J-tube properitoneal balloon and they are unable to identify the specific tip of the J-tube. There is also a rather large fluid collection supraumbilical area consistent with the dehiscence and drainage. Zosyn 3.375 g IV piggyback for the wound as well as her urinary tract infection. I called and spoke with Dr. Stearns at [facility] in [place] for the oncology surgery team. HPI ER COURSE findings and concerns were relayed to him. His questions were answered he was comfortable with this plan of care and he accepted the patient in transfer at this time to [facility]. I discussed with the patient the findings of the wound dehiscence and the fluid pocket that is developed within this region. Also the concerns of the tip of the J-tube in the bulb that may have been displaced. We will transfer her by dora aguilar to [place] in [place]. She is comfortable with this plan and her questions are answered. Departure - Departure Time of Disposition: 04:42 Disposition: DC/Tfer to [facility] Clinical Impression: UTI, Urinary tract infectious disease Abdominal wound dehiscence Qualifiers: Encounter type: initial encounter Qualified Code(s): T81.30XA - Disruption of wound, unspecified, initial encounter - Discharge Information Forms: ED Department Discharge, Interfacility Transfer HYUNLUCRETIA Sepsis Event Note (ED) - Evaluation Sepsis Screening Result: No Definite Risk - Focused Exam Vital Signs: Vital Signs Temp Pulse Resp BP Pulse Ox 12/11/20 01:04 98.1 F 77 16 129/79 95 - My Orders Last 24 Hours: My Active Orders 12/11/20 01:16 Sodium Chloride 0.9% [Saline Flush] 10 ml FLUSH ASDIRECTED PRN Peripheral IV Insertion Adult [OM.PC] Stat 12/11/20 01:17 Peripheral IV Care [RC] . DIRECTED 12/11/20 03:02 CULTURE URINE [RM] Stat 12/11/20 04:47 CULTURE WOUND [RM] Stat - Assessment/Plan Last 24 Hours: My Active Orders 12/11/20 01:16 Sodium Chloride 0.9% [Saline Flush] 10 ml FLUSH ASDIRECTED PRN Peripheral IV Insertion Adult [OM.PC] Stat 12/11/20 01:17 Peripheral IV Care [RC] . DIRECTED 12/11/20 03:02 CULTURE URINE [RM] Stat 12/11/20 04:47 CULTURE WOUND [RM] Stat"
[2020-12-11 01:53] LABS: ANION GAP 13.3 mEq/L (7-13); CHLORIDE,CL 102 mmol/L (98-107); SODIUM,NA 135 mmol/L (136-145)
[2020-12-11 02:04] LABS: PTT,PARTIAL THROMBOPLSTIN TIME 28.5 SEC (22.0-34.0)
[2020-12-11] MEDS: Lactated Ringers 1,000 ML IV ONE (02:10)
[2020-12-11] MEDS: Iopamidol 612 MG/ML 100 ML Bottle IVPUSH ONE (02:37)
[2020-12-11] MEDS: Ondansetron 4 MG/2 ML SDV IV ONE (02:52)
--- NOTE | 2020-12-11 03:52 | CT ---
PROCEDURE INFORMATION: Exam: CT Abdomen And Pelvis With Contrast Exam date and time: 12/11/2020 2:28 AM Age: 70 years old Clinical indication: Abdominal pain; Prior surgery; Surgery date: 3-7 days post-operative; Surgery type: J tube; Additional info: Recent j tube placement abd pain distention TECHNIQUE: Imaging protocol: Computed tomography of the abdomen and pelvis with contrast. Radiation optimization: All CT scans at this facility use at least one of these dose optimization techniques: automated exposure control; mA and/or kV adjustment per patient size (includes targeted exams where dose is matched to clinical indication); or iterative reconstruction. Contrast material: ISOVUE; Contrast volume: 100 ml; Contrast route: INTRAVENOUS (IV); COMPARISON: CT Abdomen Pelvis w Cont 10/14/2018 2:18 AM FINDINGS: Tubes, catheters and devices: A percutaneous jejunostomy tube the is placed in the left upper abdomen, the balloon may be within the properitoneal fat. The position of the jejunostomy tip cannot be confirmed in the current examination. Lungs: Strandy opacities are seen in the lung bases bilaterally compatible with atelectasis versus parenchymal or pleural scarring. Mediastinal space: There is thickening of the distal esophageal wall, findings that could represent esophagitis. Liver: Normal. No mass. Gallbladder and bile ducts: There are hyperdensities seen in the dependent portion of the gallbladder compatible with tiny gallstones and/or gallbladder sludge. Pancreas: Normal. No ductal dilation. Spleen: Normal. No splenomegaly. Adrenal glands: Normal. No mass. Kidneys and ureters: Strandy opacities are seen in the perinephric fascia bilaterally likely representing chronic scarring. Stomach and bowel: Unremarkable. No obstruction. No mucosal thickening. Appendix: No evidence of appendicitis. Intraperitoneal space: Some fluid is seen within the dependent portion of the pelvis. Vasculature: Unremarkable. No abdominal aortic aneurysm. Lymph nodes: Unremarkable. No enlarged lymph nodes. Urinary bladder: Gas densities are seen intraluminally within the bladder likely secondary to prior instrumentation. Reproductive: Status post hysterectomy. Bones/joints: Unremarkable. No acute fracture. Soft tissues: There is a open wound seen in the supraumbilical region on the midline . There is a fluid collection seen adjacent to the anterior abdominal wall in this region measuring approximately 4.1 cm transverse dimension by 6.7 cm craniocaudal dimension by 2.2 cm AP dimension. There are subcutaneous patchy opacities and gas densities seen in the epigastrium possibly representing postoperative changes. IMPRESSION: 1. Status post placement of a jejunostomy tube in the left epigastrium. The balloon appears to be present within the properitoneal space, the catheter tip location cannot be confirmed current examination. 2. There is a open surgical wound seen in the right epigastrium containing fluid attenuation within the anterior abdominal wall as described above. 3. Small subcutaneous patchy opacities containing gas densities are seen in the epigastrium as well possibly rib representing postoperative changes. 4. Multiple small gallstones and/or gallbladder sludge. 5. Thickening of the distal esophageal wall may represent chronic esophagitis. 6. Small volume of fluid seen in the pelvis.
[2020-12-11] MEDS: Piperacillin/Tazobactam 3.375 GM in Sodium Chloride 0.9% 100 ML IV ONE (04:40)
== END 2020-12-11 05:20 ==
LOC: DL.ED 00:39
DX: T81.30XA Disruption of wound, unspecified, initial encounter (principal); N39.0 Urinary tract infection, site not specified; I11.0 Hypertensive heart disease with heart failure; I50.9 Heart failure, unspecified; E78.00 Pure hypercholesterolemia, unspecified; I48.91 Unspecified atrial fibrillation; Z95.0 Presence of cardiac pacemaker; Z88.5 Allergy status to narcotic agent; Z20.822 Contact with and (suspected) exposure to COVID-19; Z79.82 Long term (current) use of aspirin; Z79.01 Long term (current) use of anticoagulants; Z79.899 Other long term (current) drug therapy
CPT/HCPCS: 36415; 74177; 80053; 81001; 83605; 83690; 85025; 85610; 85730; 86140; 87070; 87077; 87086; 87186; 96365; 96375; 99285; J2405; J2543; J7120; Q9967; U0002

== ENCOUNTER 2021-05-15 15:35 | Emergency (ER) | payer MEDICARE, OTHER ==
[2021-05-15] MEDS ORDERED: Tamsulosin 0.4 MG Cap.ER PO ONE (15:36)
[2021-05-15] MEDS ORDERED: Ketorolac 10 MG Tab PO ONE (15:36)
[2021-05-15 16:57] VITALS: PULSE 66
[2021-05-15] MEDS: fentaNYL 100 MCG/2 ML SDV IVPUSH ONE (17:34)
[2021-05-15] MEDS: Ondansetron 4 MG/2 ML SDV IVPUSH ONE (17:35)
[2021-05-15 18:05] LABS: AMPHETAMINES,URINE NEGATIVE (NEGATIVE); BARBITURATES,URINE NEGATIVE (NEGATIVE); BENZODIAZEPINE,URINE NEGATIVE (NEGATIVE); MDMA (ECSTASY), URINE NEGATIVE (NEGATIVE); METHADONE,URINE NEGATIVE (NEGATIVE); METHAMPHETAMINES,URINE NEGATIVE (NEGATIVE); OPIATES,URINE NEGATIVE (NEGATIVE); OXYCODONE,URINE NEGATIVE (NEGATIVE); PHENCYCLIDINE,URINE NEGATIVE (NEGATIVE); TCA,URINE NEGATIVE (NEGATIVE)
[2021-05-15 18:16] LABS: ANION GAP 13.7 mEq/L (7-13); CHLORIDE,CL 107 mmol/L (98-107); SODIUM,NA 140 mmol/L (136-145)
[2021-05-15] MEDS: Iopamidol 612 MG/ML 100 ML Bottle IVPUSH ONE (18:55)
[2021-05-15] MEDS: Ketorolac 30 MG/ML SDV IVPUSH ONE (19:13)
[2021-05-15 19:17] VITALS: BP 131/76
[2021-05-15] MEDS ORDERED: Ketorolac 10 MG Tab ONE (20:03)
[2021-05-15] MEDS ORDERED: Tamsulosin 0.4 MG Cap.ER ONE (20:03)
[2021-05-15] MEDS: Tamsulosin 0.4 MG Cap.ER PO ONE (20:28)
== END 2021-05-15 20:27 | disposition home or self-care (01) ==
LOC: DL.ED 15:35
DX: N13.2 Hydronephrosis with renal and ureteral calculous obstruction (principal); I48.91 Unspecified atrial fibrillation; E78.00 Pure hypercholesterolemia, unspecified; I11.0 Hypertensive heart disease with heart failure; I50.9 Heart failure, unspecified; E03.9 Hypothyroidism, unspecified; Z95.0 Presence of cardiac pacemaker; Z88.5 Allergy status to narcotic agent; Z79.82 Long term (current) use of aspirin; Z79.01 Long term (current) use of anticoagulants; Z79.899 Other long term (current) drug therapy
CPT/HCPCS: 36415; 74176; 80053; 80305; 80307; 81001; 82150; 83605; 83690; 83735; 84484; 85025; 86140; 93005; 96374; 96375; 99284; A9270; J1642; J1885; J2405; J3010

== ENCOUNTER 2022-04-24 15:43 | Emergency (ER) | payer MEDICARE, OTHER ==
[2022-04-24] MEDS ORDERED: Ondansetron 4 MG Tab.DIS PO ONE (15:44)
[2022-04-24] MEDS ORDERED: Acetaminophen/oxyCODONE 325-5 MG Tab PO ONE (15:44)
[2022-04-24 15:54] VITALS: BP 156/108; PULSE 89
[2022-04-24] MEDS ORDERED: fentaNYL 100 MCG/2 ML SDV IVPUSH ONE ×2 (16:19→18:25)
[2022-04-24 16:35] LABS: ANION GAP 13.8 mEq/L (7-13); CHLORIDE,CL 104 mmol/L (98-107); SODIUM,NA 139 mmol/L (136-145)
[2022-04-24 16:36] LABS: ESTIMATED GFR 66 mL/min (>=60)
[2022-04-24] MEDS ORDERED: Tamsulosin 0.4 MG Cap.ER PO ONE (16:56)
[2022-04-24] MEDS ORDERED: Ondansetron 4 MG Tab.DIS ONE (18:33)
[2022-04-24] MEDS ORDERED: Acetaminophen/oxyCODONE 325-5 MG Tab ONE (18:33)
[2022-04-24] MEDS ORDERED: Tamsulosin 0.4 MG Cap.ER ONE (18:34)
== END 2022-04-24 19:00 | disposition home or self-care (01) ==
LOC: DL.ED 15:43
DX: N13.2 Hydronephrosis with renal and ureteral calculous obstruction (principal); I48.91 Unspecified atrial fibrillation; K80.20 Calculus of gallbladder without cholecystitis without obstruction; J90 Pleural effusion, not elsewhere classified; K43.9 Ventral hernia without obstruction or gangrene; C78.7 Secondary malignant neoplasm of liver and intrahepatic bile duct; I11.0 Hypertensive heart disease with heart failure; I50.9 Heart failure, unspecified; I25.10 Atherosclerotic heart disease of native coronary artery without angina pectoris; Z88.5 Allergy status to narcotic agent; Z88.8 Allergy status to other drugs, medicaments and biological substances; Z95.1 Presence of aortocoronary bypass graft; Z79.82 Long term (current) use of aspirin; Z79.01 Long term (current) use of anticoagulants; Z79.899 Other long term (current) drug therapy
CPT/HCPCS: 36415; 74176; 80053; 81001; 83605; 85025; 86140; 96374; 96376; 99285; A9270; J1642; J3010

== ENCOUNTER 2022-04-30 10:58 | Emergency (ER) | payer MEDICARE, OTHER ==
[2022-04-30 11:18] VITALS: BP 116/78; PULSE 86
== END 2022-04-30 11:54 | disposition home or self-care (01) ==
LOC: DL.ED 10:58
DX: R31.9 Hematuria, unspecified (principal); I48.91 Unspecified atrial fibrillation; I11.0 Hypertensive heart disease with heart failure; I50.9 Heart failure, unspecified; M19.90 Unspecified osteoarthritis, unspecified site; E03.9 Hypothyroidism, unspecified; Z96.0 Presence of urogenital implants; Z88.5 Allergy status to narcotic agent; Z88.8 Allergy status to other drugs, medicaments and biological substances; Z79.82 Long term (current) use of aspirin; Z79.899 Other long term (current) drug therapy; Z79.01 Long term (current) use of anticoagulants
CPT/HCPCS: 81001; 87086; 99283

== ENCOUNTER 2023-04-02 10:16 | Emergency (ER) | payer MEDICARE, OTHER ==
[2023-04-02] MEDS ORDERED: Ondansetron 4 MG/2 ML SDV IVPUSH ONE (10:23)
[2023-04-02] MEDS ORDERED: Sodium Chloride 0.9% 1,000 ML IV ONE (10:23)
[2023-04-02] MEDS ORDERED: fentaNYL 100 MCG/2 ML SDV IVPUSH ONE (10:26)
[2023-04-02 10:34] LABS: BASOPHILS PERCENT AUTO 0.3 % (0.0-1.0); EOSINOPHILS PERCENT AUTO 0.7 % (1.0-3.0); HEMATOCRIT 33.8 % (37.0-47.0); HEMOGLOBIN 11.2 g/dL (12.0-16.0); LYMPHOCYTES PERCENT AUTO 19.4 % (20.5-50.1); MEAN CORPUSCULAR HEMOGLOBIN 30.8 pg (27.0-34.0); MEAN CORPUSCULAR HGB CONC 33.1 g/dL (33.0-35.0); MEAN CORPUSCULAR VOLUME 92.9 fL (80-100); MONOCYTES PERCENT AUTO 12.5 % (2-8); NEUTROPHILS PERCENT AUTO 67.1 % (42.2-75.2); PLATELET COUNT,PLT 213 10^3/uL (150-450); RED BLOOD CELL COUNT 3.64 10^6/uL (4.2-5.4); WHITE BLOOD CELL COUNT,WBC 6.9 10^3/uL (5.0-10.0)
[2023-04-02] MEDS ORDERED: HYDROmorphone 0.5 MG/0.5 ML Syringe IVPUSH ONE (10:53)
[2023-04-02 10:59] LABS: A/G RATIO 0.71; ALBUMIN 2.9 g/dL (3.4-5.0); ANION GAP 18.2 mEq/L (7-13); BILIRUBIN TOTAL 0.8 mg/dL (0.2-1.0); BUN/CREATININE RATIO 13.6 (No establ ref range); CALCIUM 9.3 mg/dL (8.5-10.1); CREATININE 0.59 mg/dL (0.55-1.02); EST CRCL DRUG DOSING (CG) 75.28 mL/min; MAGNESIUM 1.8 mg/dL (1.8-2.4); POTASSIUM,K 4.2 mmol/L (3.5-5.1)
[2023-04-02 11:02] LABS: LACTIC ACID 1.9 mmol/L (0.4-2.0)
[2023-04-02 11:11] LABS: CORONAVIRUS COVID-19 NAA NEGATIVE (NEGATIVE); INFLUENZA A NAA NEGATIVE (NEGATIVE); INFLUENZA B NAA NEGATIVE (NEGATIVE)
[2023-04-02 11:12] LABS: APPEARANCE,URINE CLEAR (CLEAR); BILIRUBIN,URINE NEGATIVE (NEGATIVE); COLOR,URINE YELLOW (YELLOW); GLUCOSE,URINE NEGATIVE (NEGATIVE); KETONES,URINE 40 (NEGATIVE); LEUKOCYTE ESTERASE,URINE TRACE (NEGATIVE); NITRITE,URINE NEGATIVE (NEGATIVE); OCCULT BLOOD,URINE SMALL (NEGATIVE); PROTEIN,URINE NEGATIVE (NEGATIVE); UROBILINOGEN,URINE 0.2 mg/dL (0.2-1.0)
[2023-04-02] MEDS ORDERED: Ketorolac 30 MG/ML SDV IVPUSH ONE (11:13)
[2023-04-02 11:23] LABS: BACTERIA,URINE FEW /HPF (0-FEW/HPF); EPITHELIAL CELLS,URINE FEW /HPF (NOT SEEN); MUCUS,URINE OCCASIONAL /LPF (NOT SEEN); RBC,URINE 0-5 /HPF (0-5)
[2023-04-02] MEDS ORDERED: Take Home: Ondansetron 4 MG Tab.DIS, 5 Tab Pack PO ONE (11:28)
[2023-04-02] MEDS ORDERED: Take Home: Ciprofloxacin HCl 500 MG, 6 Tab Pack PO ONE (11:28)
[2023-04-02 12:29] VITALS: BP 131/86; PULSE 76
== END 2023-04-02 12:29 | disposition home or self-care (01) ==
LOC: DL.ED 10:16
DX: A08.4 Viral intestinal infection, unspecified (principal); N30.01 Acute cystitis with hematuria; I11.0 Hypertensive heart disease with heart failure; I50.9 Heart failure, unspecified; E03.9 Hypothyroidism, unspecified; M19.90 Unspecified osteoarthritis, unspecified site; Z79.82 Long term (current) use of aspirin; Z20.822 Contact with and (suspected) exposure to COVID-19; Z90.49 Acquired absence of other specified parts of digestive tract; Z90.710 Acquired absence of both cervix and uterus; Z79.01 Long term (current) use of anticoagulants; Z88.8 Allergy status to other drugs, medicaments and biological substances; Z88.5 Allergy status to narcotic agent
CPT/HCPCS: 0240U; 36415; 80053; 81001; 83605; 83735; 85025; 87086; 96361; 96374; 96375; 99284; A9270; J1170; J1642; J1885; J2405; J3010; J7030; Q0162